=== PATIENT | male | born 1935 | race Caucasian/White ===

== ENCOUNTER 2017-08-31 21:49 | Emergency (ER) | payer MEDICARE, SELFPAY ==
[2017-08-31 21:54] VITALS: BP 146/71; PULSE 985; RESP 20; TEMP 37.5; O2SAT 97; BMI 21.7
--- NOTE | 2017-08-31 22:16 | PC.NURSE ---
pt spouse reports cough starting at 4pm and getting worse with time. reports temp 98 at home and 99 in triage.
--- NOTE | 2017-08-31 22:45 | ED.GENADULT ---
HPI - General Adult General Chief complaint: Weakness Stated complaint: NON STOP COUGHING WEAKNESS Time Seen by Provider: 08/31/17 22:08 Source: patient Mode of arrival: ambulatory Limitations: no limitations History of Present Illness HPI narrative: 81-year-old male here for evaluation of a cough. Patient states that he has had a cough for the past couple days. No fevers. Is nonproductive. States he has problems sleeping. No chest pain. Has not tried anything for it. Related Data Home Medications Medication Instructions Recorded Confirmed Ranitidine Hydrochloride 150 mg PO BID #0 09/19/12 (RANITIDINE) [place] #0 09/19/12 [lutein] 6 mg QDAY #0 09/19/12 aspirin 81 mg PO QDAY #0 09/19/12 atenolol 25 mg PO QDAY #0 09/19/12 donepezil [Aricept] 10 mg PO HS #0 09/19/12 nitroglycerin [Nitrostat] 0.4 mg SUBLINGUAL PRN #0 09/19/12 cetirizine 10 mg PO QDAYP PRN #0 03/05/17 lorazepam 0.5 mg PO TIDP PRN #0 03/05/17 omega 3-xxh-xmt-fish oil [[place]] 1 cap PO QDAY #0 03/05/17 tamsulosin [Flomax] 1 cap PO QDAY #0 05/27/17 Previous Rx's Medication Instructions Recorded azithromycin 250 mg PO DAILY 4 Days 08/31/17 prednisone 20 mg PO DAILY #5 tab 08/31/17 Allergies Allergy/AdvReac Type Severity Reaction Status Date / Time vancomycin [VANCOMYCIN] Allergy Severe FACIAL Verified 08/31/17 22:01 SWELLING Review of Systems Constitutional Reports chills, Reports difficulty sleeping, Reports fatigue and Denies night sweats Comments: Weakness Cardiovascular Denies chest pain, Denies irregular heart rhythm, Denies lightheadedness, Denies palpitations, Reports dyspnea and Denies orthopnea Respiratory Denies change in phlegm color, Reports chest congestion, Reports cough, Denies hemoptysis, Denies excessive phlegm production, Reports pain with cough, Reports dyspnea and Reports wheezing Gastrointestinal Gastrointestinal: Denies abdominal pain, Denies change in bowel habits, Denies diarrhea, Denies nausea and Denies vomiting Genitourinary Denies hematuria, Denies flank pain, Denies urinary incontinence and Denies urinary urgency Musculoskeletal Denies back pain, Denies muscle weakness, Denies numbness and Denies tingling Integumentary/Breasts Denies pruritus, Denies erythema, Denies rash and Denies wounds Neurologic Denies numbness and Denies tingling Endocrine Reports fatigue and Denies palpitations Hematologic/Lymphatic Denies easy bruising Allergic/Immunologic Reports wheezing [facility] Social History Smoking Status: Never smoker Exam Resp Effort & Inspection: cough, not labored, no respiratory distress and no retractions Auscultation: rhonchi and wheezes Cardio Rate: regular rate Rhythm: regular rhythm Heart Sounds: no click, no gallops, no murmurs and no rubs Pulses: normal peripheral pulses Skin General: no rashes or lesions noted, No jaundice and No petechiae Neuro General: alert, awake, oriented x3, gait normal and no focal motor deficits Speech: speech normal Sensory Exam: no sensory deficits noted Extrem General: full ROM, no clubbing, cyanosis or edema, no pedal edema and no calf tenderness Medical Decision Making MDM Narrative Medical decision making narrative: Patient arrived with a couple days of cough and coarse breath sounds. Chest x-ray does not show a definitive pneumonia however does have fatigue and chills and coarse breath sounds. Will treat with antibiotics for a clinical pneumonia. Patient also received a nebulizer treatment here in the emergency department which he states did improve his symptoms somewhat. No indication for admission. Patient not hypoxic. Doubt ACS. Patient was given return precautions. He expressed understanding and agreement with plan. Imaging Data Chest x-ray: My impression: No focal consolidation Normal size heart No pneumothorax Course Orders Ordered: ED Orders 08/31/17 22:46 XR chest 2V Stat Discontinued Medications Albuterol/Ipratropium (Duoneb) 3 ml INH NOW ONE Stop: 08/31/17 22:46 Last Admin: 08/31/17 22:48 Dose: 3 ml Azithromycin (Zithromax) 500 mg PO NOW ONE Stop: 08/31/17 23:58 Last Admin: 09/01/17 00:04 Dose: 500 mg Prednisone (Deltasone) 20 mg PO NOW ONE Stop: 08/31/17 23:58 Last Admin: 09/01/17 00:03 Dose: 20 mg Last Vital Signs Temp 99.5 F 08/31/17 21:54 Pulse 82 09/01/17 00:25 Resp 18 09/01/17 00:25 BP 141/82 H 09/01/17 00:25 Pulse Ox 98 09/01/17 00:25 Discharge Plan Departure Patient Disposition: Home, Self-Care Clinical Impression: Cough, Acute upper respiratory infection Discharge Date/Time: 09/01/17 00:44 Interventions: ED Discharge Assessment Last Done: 09/01/17 00:40 Instructions: Cough Activity Restrictions/Additional Instructions: Take all of your medications as instructed. Return to the emergency department for any new or worsening symptoms Prescriptions: New azithromycin 250 mg tablet 250 mg PO DAILY 4 Days RF: 0 prednisone 20 mg tablet 20 mg PO DAILY Qty: 5 RF: 0 No Action donepezil [Aricept] 10 MG tablet 10 mg PO HS Qty: 0 RF: 0 aspirin 81 MG tablet,chewable 81 mg PO QDAY Qty: 0 RF: 0 atenolol 50 MG tablet 25 mg PO QDAY Qty: 0 RF: 0 [lutein] 6 mg QDAY Qty: 0 RF: 0 nitroglycerin [Nitrostat] 0.4 MG tablet, sublingual 0.4 mg Sublingual PRN Qty: 0 RF: 0 Ranitidine Hydrochloride (RANITIDINE) 150 mg PO BID Qty: 0 RF: 0 [place] Qty: 0 RF: 0 lorazepam 0.5 MG tablet 0.5 mg PO TIDP PRNQty: 0 RF: 0 omega 3-ymn-xxn-fish oil [Omera] 1 EACH capsule 1 cap PO QDAY Qty: 0 RF: 0 cetirizine 10 MG tablet 10 mg PO QDAYP PRNQty: 0 RF: 0 tamsulosin [Flomax] 0.4 MG capsule,extended release 24hr 1 cap PO QDAY Qty: 0 RF: 0
--- NOTE | 2017-08-31 22:46 | DI.RAD.S_ITS ---
PROCEDURE: XR CHEST 2V INDICATIONS: Cough TECHNIQUE: 2 views of the chest were acquired. COMPARISON: None. FINDINGS: Surgical changes and devices: None. Lungs and pleura: No pleural effusions or pneumothorax. Lungs are clear. Mediastinum: Mediastinal contours are normal. Heart size is normal. Bones and chest wall: No suspicious bony abnormalities. Soft tissues appear unremarkable. IMPRESSION: No acute cardiopulmonary findings. Dictated by: Elana Arias M.D. on 09/01/2017 at 8:10 Approved by: Elana Arias M.D. on 09/01/2017 at 8:10
[2017-08-31] MEDS: ALBUTEROL/IPRATROPIUM 3 ML AMPUL INH (22:48)
[2017-08-31 22:49] VITALS: PULSE 92; O2SAT 93
[2017-08-31 22:52] VITALS: PULSE 88
[2017-09-01] MEDS: predniSONE 20 MG TABLET PO (00:03)
[2017-09-01] MEDS: AZITHROMYCIN 250 MG TABLET 500 MG PO (00:04)
[2017-09-01 00:25] VITALS: BP 141/82; PULSE 82; RESP 18; O2SAT 98
== END 2017-09-01 00:44 | disposition home or self-care (01) ==
PROVIDERS: Emergency Provider Emergency Medicine; Family Provider Internal Medicine; PCP Internal Medicine
DX: J06.9 Acute upper respiratory infection, unspecified (principal); R05 Cough
CPT/HCPCS: 71046; 94640; 99282; 99283

== ENCOUNTER → 2017-09-12 08:29 | Outpatient (CLI) | payer MEDICARE, SELFPAY ==
[2017-09-12 09:37] LABS: Alanine Aminotransferase 42 IU/L (21-72); Albumin 4.2 g/dL (3.5-5.0); Albumin Globulin Ratio 1.3 (1.0-2.8); Alkaline Phosphatase 75 U/L (38-126); Aspartate Aminotransferase 20 IU/L (17-59); Bilirubin Total 0.7 mg/dL (0.2-1.3); Bilirubin Unconjugated 0.6 mg/dL (0.0-1.1); Cholesterol 188 mg/dL (140-199); Globulin 3.3 g/dL (1.7-4.1); HDL Cholesterol 63 mg/dL (40-60); HEMOLYSIS < 15 (0-50); LDL Cholesterol Calculated 100 mg/dL (<100); Total Protein 7.5 g/dL (6.3-8.2); Triglycerides 126 mg/dL (35-150)
== END ==
PROVIDERS: PCP Internal Medicine; Visit Provider Internal Medicine Cardiovascular Disease
DX: I10 Essential (primary) hypertension (principal); E78.5 Hyperlipidemia, unspecified
CPT/HCPCS: 36415; 80061; 80076

== ENCOUNTER → 2019-05-28 14:47 | Outpatient (ROUT) | payer MEDICARE, SELFPAY ==
[2019-05-28 15:11] LABS: Aspartate Aminotransferase 42 IU/L (17-59); Blood Urea Nitrogen 14 mg/dL (9-20); Calcium 9.8 mg/dL (8.4-10.2); Carbon Dioxide 27 mmol/L (22-32); Chloride 101 mmol/L (98-107); Cholesterol 130 mg/dL (140-199); Estimated Glomerular Filt Rate > 60.0 mL/min (>60); Glucose 269 mg/dL (80-110); HDL Cholesterol 36 mg/dL (40-60); HEMOLYSIS < 15 (0-50); LDL Cholesterol Calculated 65 mg/dL (<100); Potassium 4.2 mmol/L (3.4-5.1); Sodium 138 mmol/L (137-145); Triglycerides 145 mg/dL (35-150)
== END ==
PROVIDERS: Family Provider Internal Medicine; PCP Internal Medicine; Visit Provider Internal Medicine
DX: E11.9 Type 2 diabetes mellitus without complications (principal); I10 Essential (primary) hypertension; E78.2 Mixed hyperlipidemia
CPT/HCPCS: 80048; 80061; 83036; 84450

== ENCOUNTER 2019-09-16 19:37 | Emergency (ER) | payer MEDICARE, SELFPAY ==
--- NOTE | 2019-09-16 19:35 | DI.CT.S_ITS ---
PROCEDURE: CT HEAD/BRAIN WO CON INDICATIONS: head injury on plavix TECHNIQUE: Noncontrast 4.5 mm thick angled axial sections acquired from the foramen magnum to the vertex, with coronal and sagittal reformats. For radiation dose reduction, the following was used: automated exposure control, adjustment of mA and/or kV according to patient size. COMPARISON: [facility], CT, HEAD WITHOUT CONTRAST, 05/26/2017, 21:40. FINDINGS: Image quality: Excellent. CSF spaces: Basal cisterns are patent. No extra-axial fluid collections. Ventricles are normal dilated but unchanged since 2018. Brain: No midline shift. No intracranial masses or hemorrhage. No area of hypodensity in a large vascular distribution to suggest acute infarction. Periventricular hypodensity consistent with chronic microvascular ischemic change. Skull and face: Calvarium and visualized facial bones are intact, without suspicious lesions. Sinuses: Visualized sinuses and mastoids are clear. IMPRESSION: No acute intracranial abnormality. No acute intracranial hemorrhage. Chronic microvascular ischemic disease. Prominent ventricles are unchanged. Dictated by: Kayden Philip M.D. on 09/16/2019 at 19:52 Approved by: Kayden Philip M.D. on 09/16/2019 at 19:55
[2019-09-16 19:37] VITALS: BP 167/82; PULSE 80; RESP 14; TEMP 36.9; O2SAT 99
[2019-09-16 19:41] VITALS: BP 167/82; PULSE 80; RESP 18; TEMP 36.9; O2SAT 98
--- NOTE | 2019-09-16 19:48 | ED.HEATRA ---
HPI - Head Injury General Chief complaint: Trauma Stated complaint: mechanical fall on Plavix, Modified Time Seen by Provider: 09/16/19 19:39 Source: EMS Mode of arrival: EMS Limitations: no limitations History of Present Illness HPI Narrative: 83M nonsmoker is wheel chair bound due to parkinson's and dementia presents by EMS due to in accidental fall with head injury. He was leaning forward in his wheelchair, trying to accommodate his who was cleaning when he fell forward into a counter. He denies any loss of consciousness and has had no nausea or vomiting. He is otherwise well and free of complaint. He denies any injury. He is activated as a modified trauma as he is on Plavix given his history of coronary artery disease. He has dementia and is a poor historian. MD Complaint: head injury Onset (ago): minute(s) Mechanism of Injury: fall Place: home Loss of Consciousness: no Location of injury: frontal Severity: mild Radiation: none Other Injuries: none Context: other anticoagulant use Associated symptoms: denies other symptoms Related Data Home Medications Medication Instructions Recorded Confirmed Ranitidine Hydrochloride 150 mg PO BID #0 09/19/12 (RANITIDINE) [place] #0 09/19/12 [lutein] 6 mg QDAY #0 09/19/12 aspirin 81 mg PO QDAY #0 09/19/12 atenolol 25 mg PO QDAY #0 09/19/12 donepezil [Aricept] 10 mg PO HS #0 09/19/12 nitroglycerin [Nitrostat] 0.4 mg SUBLINGUAL PRN #0 09/19/12 cetirizine 10 mg PO QDAYP PRN #0 03/05/17 lorazepam 0.5 mg PO TIDP PRN #0 03/05/17 omega 5-rhd-dsv-fish oil [Omera] 1 cap PO QDAY #0 03/05/17 tamsulosin [Flomax] 1 cap PO QDAY #0 05/27/17 Previous Rx's Medication Instructions Recorded prednisone 20 mg PO DAILY #5 tab 08/31/17 Allergies Allergy/AdvReac Type Severity Reaction Status Date / Time vancomycin [VANCOMYCIN] Allergy Severe FACIAL Verified 09/16/19 19:54 SWELLING Review of Systems Review of Systems Narrative: poor historian, History is largely from EMS Constitutional Constitutional: Denies chills, Denies fatigue, Denies fever(s), Denies frequent falls, Denies lethargy and Denies weakness Eyes Eyes: Denies change in vision, Denies eye discharge, Denies irritation and Denies loss of vision ENT Ears, Nose, Mouth, and Throat: Denies change in voice, Denies dizziness, Denies neck pain, Denies sore throat and Denies throat swelling Cardiovascular Cardiovascular: Denies chest pain, Denies irregular heart rhythm, Denies lightheadedness, Denies palpitations, Denies dyspnea, Denies dyspnea on exertion and Denies orthopnea Respiratory Respiratory: Denies cough, Denies dyspnea, Denies dyspnea on exertion and Denies wheezing Gastrointestinal Gastrointestinal: Denies abdominal pain, Denies change in bowel habits, Denies diarrhea, Denies nausea and Denies vomiting Genitourinary Genitourinary: Denies hematuria, Denies flank pain, Denies urinary incontinence and Denies urinary urgency Musculoskeletal Musculoskeletal: Denies back pain, Denies muscle weakness, Denies neck pain, Denies numbness and Denies tingling Integumentary/Breasts Skin/Breast: Denies pruritus, Denies erythema, Denies rash and Reports wounds Neurologic Neurologic: Denies behavioral changes, Denies confusion, Denies dizziness, Denies frequent falls, Denies loss of vision, Denies numbness, Denies tingling and Denies weakness Psychiatric Psychiatric: Denies anxiety, Denies behavioral changes, Denies confusion, Denies depression, Denies homicidal ideation and Denies suicidal ideation Endocrine Endocrine: Denies fatigue, Denies flushing and Denies palpitations Hematologic/Lymphatic Hematologic/Lymphatic: Denies easy bruising Allergic/Immunologic Allergic/Immunologic: Denies urticaria, Denies throat swelling and Denies wheezing Patient History Social History Smoking Status: Never smoker Smoking Status: Never smoker Substance Use Type: does not use Exam Narrative Exam Narrative: GENERAL: [83] year old patient appears stated age. Well-nourished, well-developed patient, in mild distress. Confused, baseline per medics/family GCS 14 HEAD: 3cm laceration over left eye. Slow trickle bleeding. EYES: Pupils equal round and reactive. Extraocular motions intact. No scleral icterus. No injection or drainage. ENT: Nose without bleeding, purulent drainage. Throat without erythema, tonsillar hypertrophy or exudate. Airway patent. NECK: Trachea midline. Non tender CARDIOVASCULAR: Regular rate and rhythm without murmurs, gallops, or rubs. RESPIRATORY: Clear to auscultation. Breath sounds equal bilaterally. No wheezes, rales, or rhonchi. GASTROINTESTINAL: Abdomen soft, non-tender, nondistended. EXTREMITIES: No edema or joint tenderness. BACK: Nontender without deformity or crepitance. No flank tenderness. NEURO: Awake, confused SKIN: No rash or erythema of visible areas Initial Vital Signs Initial Vital Signs: Vital Signs Temperature 98.4 F 09/16/19 19:37 Pulse Rate 80 09/16/19 19:37 Respiratory Rate 14 09/16/19 19:37 Blood Pressure 167/82 H 09/16/19 19:37 Pulse Oximetry 99 09/16/19 19:37 Procedures Laceration Repair Laceration 1: Site: face Side (If applicable): left Size (cm): 3 Description: irregular Depth: involves muscle layer Local Anesthetic: lidocaine 1% and with epi Amount of anesthesia used (mL): 4 Pre-repair: wound explored Skin layer closed with: nylon Size (cm): 5-0 Number of sutures: 8 Technique: simple, interrupted Subcutaneous layer closed with: vicryl Size: 5-0 Number of sutures: 1 Technique: simple, interrupted Course Orders Ordered: ED Orders 09/16/19 19:35 CT head/brain wo con Stat 09/16/19 19:59 Complete Blood Count AUTO DIFF Stat Prothrombin Time INR Stat Discontinued Medications Bacitracin (Bacitracin) 1 applic TOP NOW ONE Stop: 09/16/19 20:47 Last Admin: 09/16/19 20:57 Dose: 1 applic Documented by: TALITA Lidocaine/Epinephrine (Xylocaine 1% W/Epi) 1 ml SUBCUT NOW ONE Stop: 09/16/19 19:36 Last Admin: 09/16/19 19:57 Dose: 1 ml Documented by: TALITA Vital Signs Vital signs: Vital Signs - 8 hr 09/16/19 19:37 09/16/19 19:41 09/16/19 19:55 Temperature 98.4 F 98.4 F Pulse Rate 80 80 80 Respiratory Rate 14 18 16 Blood Pressure 167/82 H 167/82 H Blood Pressure [Left Arm] 155/70 H Pulse Oximetry 99 98 99 09/16/19 20:50 Temperature Pulse Rate 77 Respiratory Rate 16 Blood Pressure Blood Pressure [Left Arm] 127/70 Pulse Oximetry 99 MDM - Head Injury Lab Data Result diagrams: 09/16/19 19:59 Labs: Lab Results 09/16/19 09/16/19 Range/Units 19:59 19:59 WBC 5.5 (4.5-11.0) X10^3/uL RBC 4.12 L (4.5-5.9) X10^6/uL Hgb 13.6 (13.5-17.5) g/dL Hct 38.1 L (41-53) % MCV 92.5 (80-100) fL MCH 32.9 (26-34) PG MCHC 35.6 (30-36) % RDW 14.1 (11.6-14.8) % Plt Count 180 (150-400) X10^3/uL Neut % (Auto) 66.4 (50-75) % Lymph % (Auto) 21.6 L (25-40) % [place] % (Auto) 3.8 (3-14) % Eos % (Auto) 4.2 H (2-4) % Baso % (Auto) 4.0 H (0-2) % Neut # (Auto) 3700 (5164-8679) /uL Lymph # (Auto) 1200 (9455-1792) /uL [place] # (Auto) 200 (0-900) /uL Eos # (Auto) 200 (0-450) /uL Baso # (Auto) 200 H (0-100) /uL PT 12.4 (10.1-12.7) SECONDS INR 1.1 (0.9-1.3) Imaging Data CT scan - head: Radiologist's Impression: [address] [id number] [address] Scan Report Signed Patient: Cosme Barroso [facility]#: [id number] : 5Acct:[id number] Age/Sex: 83 / MDate of Service: 09/16/19 Loc: ED Accession Number: [id number] Procedure: CT head/brain wo con Ordering Provider: Titus Landis D.O. PROCEDURE: CT HEAD/BRAIN WO CON INDICATIONS: head injury on plavix TECHNIQUE: Noncontrast 4.5 mm thick angled axial sections acquired from the foramen magnum to the vertex, with coronal and sagittal reformats. For radiation dose reduction, the following was used: automated exposure control, adjustment of mA and/or kV according to patient size. COMPARISON: [facility], CT, HEAD WITHOUT CONTRAST, 05/26/2017, 21:40. FINDINGS: Image quality: Excellent. CSF spaces: Basal cisterns are patent. No extra-axial fluid collections. Ventricles are normal dilated but unchanged since 2018. Brain: No midline shift. No intracranial masses or hemorrhage. No area of hypodensity in a large vascular distribution to suggest acute infarction. Periventricular hypodensity consistent with chronic microvascular ischemic change. Skull and face: Calvarium and visualized facial bones are intact, without suspicious lesions. Sinuses: Visualized sinuses and mastoids are clear. IMPRESSION: No acute intracranial abnormality. No acute intracranial hemorrhage. Chronic microvascular ischemic disease. Prominent ventricles are unchanged. Dictated by: Kayden Philip M.D. on 09/16/2019 at 19:52 Approved by: Kayden Philip M.D. on 09/16/2019 at 19:55 Discharge Plan Departure Patient Disposition: Home Clinical Impression: Laceration of head Qualifiers: Encounter type: initial encounter Location of open wound of head: unspecified part of head Foreign body presence: without foreign body Qualified Code(s): S01.91XA - Laceration without foreign body of unspecified part of head, initial encounter Discharge Date/Time: 09/16/19 21:15 Instructions: DI for Laceration Repair Activity Restrictions/Additional Instructions: Please keep the wound clean and dry to the best of your ability. Please monitor for signs of infection such as redness to the skin or increasing pain. Have the sutures removed by your doctor in about 7 days. If you are unable to get into your doctor, we would be happy to remove the sutures in that same timeframe. If you have trouble finding a way to get the sutures out you could also call the [facility] Resource line listed below Prescriptions: No Action donepezil [Aricept] 10 MG tablet 10 mg PO HS Qty: 0 RF: 0 aspirin 81 MG tablet,chewable 81 mg PO QDAY Qty: 0 RF: 0 atenolol 50 MG tablet 25 mg PO QDAY Qty: 0 RF: 0 [lutein] 6 mg QDAY Qty: 0 RF: 0 nitroglycerin [Nitrostat] 0.4 MG tablet, sublingual 0.4 mg Sublingual PRN Qty: 0 RF: 0 Ranitidine Hydrochloride (RANITIDINE) 150 mg PO BID Qty: 0 RF: 0 [place] Qty: 0 RF: 0 lorazepam 0.5 MG tablet 0.5 mg PO TIDP PRNQty: 0 RF: 0 omega 2-ujg-jjh-fish oil [Omera] 1 EACH capsule 1 cap PO QDAY Qty: 0 RF: 0 cetirizine 10 MG tablet 10 mg PO QDAYP PRNQty: 0 RF: 0 tamsulosin [Flomax] 0.4 MG capsule,extended release 24hr 1 cap PO QDAY Qty: 0 RF: 0 prednisone 20 mg tablet 20 mg PO DAILY Qty: 5 RF: 0 Referrals: [facility] [Outside] Christo Woodson MD [Primary Care Provider] -
[2019-09-16 19:55] VITALS: BP 155/70; PULSE 80; RESP 16; O2SAT 99
[2019-09-16] MEDS: LIDOCAINE 1% W/EPI 1 ML SUBCUT (19:57)
[2019-09-16 20:13] LABS: Add Manual Diff / Slide Review NO; Basophils Absolute Auto 200 /uL (0-100); Eosinophils Absolute Auto 200 /uL (0-450); Eosinophils Percent Auto 4.2 % (2-4); Hematocrit 38.1 % (41-53); Hemoglobin 13.6 g/dL (13.5-17.5); Lymphocytes Absolute Auto 1200 /uL (1100-4500); Lymphocytes Percent Auto 21.6 % (25-40); Mean Corpuscular HGB Conc 35.6 % (30-36); Mean Corpuscular Hemoglobin 32.9 PG (26-34); Mean Corpuscular Volume 92.5 fL (80-100); Monocytes Absolute Auto 200 /uL (0-900); Monocytes Percent Auto 3.8 % (3-14); Neutrophils Absolute Auto 3700 /uL (1500-7000); Neutrophils Percent Auto 66.4 % (50-75); Platelet Count 180 X10^3/uL (150-400); Red Blood Cell Count 4.12 X10^6/uL (4.5-5.9); Red Cell Distribution Width 14.1 % (11.6-14.8); White Blood Cell Count 5.5 X10^3/uL (4.5-11.0)
[2019-09-16 20:16] LABS: INR 1.1 (0.9-1.3); Prothrombin Time 12.4 SECONDS (10.1-12.7)
[2019-09-16 20:50] VITALS: BP 127/70; PULSE 77; RESP 16; O2SAT 99
--- NOTE | 2019-09-16 20:51 | PC.NURSE ---
Pt requiring BLS transport r/t inability to sit in wheel chair w/o falling out, decreased mobility.
[2019-09-16] MEDS: BACITRACIN OINT 0.9 GM PCKT 1 APPLIC TOP (20:57)
--- NOTE | 2019-09-16 21:15 | PC.NURSE ---
Report to NWA @ bedside.
== END 2019-09-16 21:15 | disposition home or self-care (01) ==
PROVIDERS: Emergency Provider Emergency Medicine; Family Provider Internal Medicine; PCP Internal Medicine
DX: S01.91XA Laceration without foreign body of unspecified part of head, initial encounter (principal); W05.0XXA Fall from non-moving wheelchair, initial encounter; G20 Parkinson's disease; F02.80 Dementia in other diseases classified elsewhere, unspecified severity, without behavioral disturbance, psychotic disturbance, mood disturbance, and anxiety; I25.10 Atherosclerotic heart disease of native coronary artery without angina pectoris; Z79.01 Long term (current) use of anticoagulants
CPT/HCPCS: 12013; 36415; 70450; 85025; 85610; 99284

== ENCOUNTER 2019-09-23 16:28 | Inpatient (IN) | payer MEDICARE, SELFPAY ==
[2019-09-23 16:40] VITALS: BP 169/75; PULSE 72; RESP 18; TEMP 36.6; O2SAT 96; BMI 22.0
--- NOTE | 2019-09-23 17:05 | ED.WEAKNESS ---
HPI - Weakness <Jeri TracyVIJAY - Last Filed: 09/23/19 21:12> General Chief complaint: Weakness Stated complaint: Weakness Time Seen by Provider: 09/23/19 16:54 Source: patient Mode of arrival: Ambulatory Limitations: no limitations History of Present Illness HPI Narrative: 83-year-old male with a history of Alzheimer's, Parkinson's, GERD, and MD, presents emergency department with his for increasing weakness today. states patient usually is able to use his walker to move around the house and get into and out of his hospital bed at home. However, noted this morning he was having difficulty standing and walking, she let him rest in bed today. This afternoon he continued to have difficulty standing due to increased weakness. Patient denies any symptoms such as cough, fevers, vomiting, chest pain, abdominal pain, dizziness, new falls, or any other concerns. Patient was seen on 09/16/2019 for a laceration repair to his head for a fall and negative head CT. No vomiting or change in behavior since this instant until today. Patient continued to deny any new fall since this incident. Related Data Home Medications Medication Instructions Recorded Confirmed aspirin 81 mg PO QDAY #0 09/19/12 09/23/19 donepezil [Aricept] 10 mg PO HS #0 09/19/12 09/23/19 nitroglycerin [Nitrostat] 0.4 mg SUBLINGUAL PRN #0 09/19/12 09/23/19 cetirizine 10 mg PO QDAYP PRN #0 03/05/17 09/23/19 atorvastatin 20 mg PO BEDTIME 09/23/19 09/23/19 carbidopa-levodopa 1 tab PO TID 09/23/19 09/23/19 clopidogrel [Plavix] 75 mg PO DAILY 09/23/19 09/23/19 metformin 500 mg PO BID 09/23/19 09/23/19 metoprolol succinate 25 mg PO BID 09/23/19 09/23/19 pantoprazole 40 mg PO DAILY 09/23/19 09/23/19 quetiapine 50 mg PO BEDTIME 09/23/19 09/23/19 tamsulosin 0.4 mg PO BEDTIME 09/23/19 09/23/19 Allergies Allergy/AdvReac Type Severity Reaction Status Date / Time vancomycin [VANCOMYCIN] Allergy Severe FACIAL Verified 09/23/19 16:40 SWELLING Review of Systems <VIJAY Burden - Last Filed: 09/23/19 21:12> Review of Systems Narrative: REVIEW OF SYSTEMS: GENERAL: Denies fever or chills. Reports increased weakness, see HPI. HENT: Previous head trauma week ago, see HPI. EYES: Denies vision changes. CARDIOVASCULAR: No chest pain or syncope. RESPIRATORY: No shortness of breath or cough. GASTROINTESTINAL: No nausea, vomiting, diarrhea, or constipation. GENITOURINARY: No dysuria. MUSCULOSKELETAL: Reports increasing weakness and difficulty standing. INTEGUMENTARY: No rash, lesions, or pruritus. NEURO: No numbness, tingling, memory loss, or confusion. PSYCH: Increased lethargy. 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) Falls frequently (Acute) Hypertension (Acute) Parkinson disease (Acute) Surgical History (Updated 09/23/19 @ 21:32 by Gagandeep Sánchez MD) History of back surgery (Acute) Social History Smoking Status: Never smoker Smoking Status: Never smoker Substance Use Type: does not use Exam <VIJAY Burden - Last Filed: 09/23/19 21:12> Initial Vital Signs Initial Vital Signs: Vital Signs Temperature 97.9 F 09/23/19 16:40 Pulse Rate 72 09/23/19 16:40 Respiratory Rate 18 09/23/19 16:40 Blood Pressure 169/75 H 09/23/19 16:40 Pulse Oximetry 96 09/23/19 16:40 PHYSICAL EXAMINATION: GENERAL: Well groomed, alert, and cooperative. Answers yes or no questions does not elaborate. HENT: Ecchymosis noted to left forehead, green bruising noted around left eye. Laceration above left eyebrow with sutures intact, skin is healing and approximated after sutures were removed with a small scab. Ear canals patent. Oral mucosa is pink and moist. EYES: PERRLA, EOMIs, conjunctiva pink, sclera white, no periorbital swelling. CHEST: Normal to inspection and without deformities. CARDIOVASCULAR: S1 and S2 sounds normal. Regular rate and rhythm, no murmurs, clicks, or bruits. No pedal edema. RESPIRATORY: Normal respiratory rate, trachea midline, airway patent. No stridor, nasal flaring or accessory muscle use. Lungs are clear in all joshi without wheeze, rhonchi, or crackles. GASTROINTESTINAL: Bowel sounds normoactive. Abdomen is soft and non-tender. No organomegaly. MUSCULOSKELETAL: Lower extremity weakness, patient is unable to hold right or left leg up off the bed. Slight increased weakness noted to right side of leg. Equal sales representative womens health strength bilaterally, equal forearm and deltoid strength. EXTREMITIES: CMS intact. Moves all extremities. SKIN: Warm, dry, soft, appropriate color for ethnicity. No lesions, rashes, or wounds. NEURO: Alert and oriented to person and situation. Ataxia noted, baseline ataxia due to Parkinson's. PSYCH: Flat affect, cooperative. <Thu Crowley MD - Last Filed: 09/23/19 22:59> Initial Vital Signs Initial Vital Signs: Vital Signs Temperature 97.9 F 09/23/19 16:40 Pulse Rate 72 09/23/19 16:40 Respiratory Rate 18 09/23/19 16:40 Blood Pressure 169/75 H 09/23/19 16:40 Pulse Oximetry 96 09/23/19 16:40 Scores <VIJAY Burden - Last Filed: 09/23/19 21:12> GCS [place] coma scale eye opening: Spontaneous [place] coma scale verbal response: Orientated [place] coma scale motor response: Obey commands [place] coma scale total score: 15 Course <VIJAY Burden - Last Filed: 09/23/19 21:12> Course Course Narrative: Patient taking small sips of water. Patient unable to perform full NIH score due difficulty with [place]. Orders Ordered: ED Orders 09/23/19 17:04 Partial Thromboplastin Time Stat Prothrombin Time INR Stat 09/23/19 17:05 XR chest 1V Stat 09/23/19 17:37 Complete Blood Count AUTO DIFF Stat Comprehensive Metabolic Panel Stat Lactate (Lactic Acid) Stat Troponin & CK Cardiac Panel Stat 09/23/19 17:44 Blood Culture Stat 09/23/19 18:59 CT head/brain wo con Stat 09/23/19 19:56 Urinalysis and Microscopic Stat Atorvastatin Calcium (Lipitor) 20 mg PO BEDTIME BIPIN Carbidopa/Levodopa (Sinemet 25-100 Tab) 1 each PO TID BIPIN Donepezil HCl (Aricept) 10 mg PO BEDTIME BIPIN Famotidine (Pepcid Ac) 20 mg PO BID BIPIN Sodium Chloride (Normal Saline 0.9%) 1,000 mls @ 150 mls/hr IV CONT BIPIN Last Infusion: 09/23/19 20:39 Dose: 500 mls/hr Documented by: Infusion: 09/23/19 18:48 Dose: 500 mls/hr Documented by: Admin: 09/23/19 17:29 Dose: 150 mls/hr Documented by: MEISENLuis Sodium Chloride (Normal Saline 0.9%) 1,000 mls @ 80 mls/hr IV CONT BIPIN Stop: 09/24/19 18:00 Metformin HCl (Glucophage) 500 mg PO BID BIPIN Metoprolol Succinate (Toprol Xl) 25 mg PO BID BIPIN Naloxone HCl (Narcan) 0.2 mg IV Q2MIN PRN PRN Reason: Opiate Reversal Nitroglycerin (Nitrostat) 0.4 mg SL PRN BIPIN Quetiapine Fumarate (Seroquel) 50 mg PO BEDTIME BIPIN Tamsulosin HCl (Flomax) 0.4 mg PO BEDTIME BIPIN Discontinued Medications Atenolol (Tenormin) 25 mg PO BEDTIME BIPIN Tamsulosin HCl (Flomax) 0.4 mg PO BEDTIME BIPIN Consultations Consultation #1: Patient staffed with Dr. crowley discussed symptoms, tests, test results. Patient was admitted to Dr. Sánchez under observation. Vital Signs Vital signs: Vital Signs - 8 hr 09/23/19 16:40 09/23/19 18:10 09/23/19 18:30 Temperature 97.9 F Pulse Rate 72 75 71 Respiratory Rate 18 21 19 Blood Pressure 169/75 H Blood Pressure [Right Arm] 186/81 H 158/77 H Pulse Oximetry 96 97 96 09/23/19 19:31 09/23/19 20:00 Temperature Pulse Rate 69 73 Respiratory Rate 24 19 Blood Pressure Blood Pressure [Right Arm] 177/77 H 164/72 H Pulse Oximetry 97 97 <Thu Crowley MD - Last Filed: 09/23/19 22:59> Orders Ordered: ED Orders 09/23/19 17:04 Partial Thromboplastin Time Stat Prothrombin Time INR Stat 09/23/19 17:05 XR chest 1V Stat 09/23/19 17:37 Complete Blood Count AUTO DIFF Stat Comprehensive Metabolic Panel Stat Lactate (Lactic Acid) Stat Troponin & CK Cardiac Panel Stat 09/23/19 17:44 Blood Culture Stat 09/23/19 18:59 CT head/brain wo con Stat 09/23/19 19:56 Urinalysis and Microscopic Stat Atorvastatin Calcium (Lipitor) 20 mg PO BEDTIME BIPIN Carbidopa/Levodopa (Sinemet 25-100 Tab) 1 each PO TID BIPIN Donepezil HCl (Aricept) 10 mg PO BEDTIME BIPIN Famotidine (Pepcid Ac) 20 mg PO BID BIPIN Sodium Chloride (Normal Saline 0.9%) 1,000 mls @ 150 mls/hr IV CONT BIPIN Last Infusion: 09/23/19 20:39 Dose: 500 mls/hr Documented by: Infusion: 09/23/19 18:48 Dose: 500 mls/hr Documented by: Admin: 09/23/19 17:29 Dose: 150 mls/hr Documented by: MEISENB Sodium Chloride (Normal Saline 0.9%) 1,000 mls @ 80 mls/hr IV CONT BIPIN Stop: 09/24/19 18:00 Metformin HCl (Glucophage) 500 mg PO BID BIPIN Metoprolol Succinate (Toprol Xl) 25 mg PO BID BIPIN Naloxone HCl (Narcan) 0.2 mg IV Q2MIN PRN PRN Reason: Opiate Reversal Nitroglycerin (Nitrostat) 0.4 mg SL PRN BIPIN Quetiapine Fumarate (Seroquel) 50 mg PO BEDTIME BIPIN Tamsulosin HCl (Flomax) 0.4 mg PO BEDTIME BIPIN Discontinued Medications Atenolol (Tenormin) 25 mg PO BEDTIME BIPIN Tamsulosin HCl (Flomax) 0.4 mg PO BEDTIME BIPIN Vital Signs Vital signs: Vital Signs - 8 hr 09/23/19 16:40 09/23/19 18:10 09/23/19 18:30 Temperature 97.9 F Pulse Rate 72 75 71 Respiratory Rate 18 21 19 Blood Pressure 169/75 H Blood Pressure [Right Arm] 186/81 H 158/77 H Pulse Oximetry 96 97 96 09/23/19 19:31 09/23/19 20:00 Temperature Pulse Rate 69 73 Respiratory Rate 24 19 Blood Pressure Blood Pressure [Right Arm] 177/77 H 164/72 H Pulse Oximetry 97 97 MDM - Weakness <VIJAY Burden - Last Filed: 09/23/19 21:12> Medical Records Attestation: I reviewed the patient's medical records. Lab Data Attestation: I reviewed the patient's lab results. Result diagrams: 09/23/19 17:37 09/23/19 17:37 Labs: Lab Results 09/23/19 09/23/19 09/23/19 Range/Units 17:04 17:37 17:37 WBC 5.4 (4.5-11.0) X10^3/uL RBC 3.96 L (4.5-5.9) X10^6/uL Hgb 13.0 L (13.5-17.5) g/dL Hct 36.2 L (41-53) % MCV 91.4 (80-100) fL MCH 32.9 (26-34) PG MCHC 36.0 (30-36) % RDW 14.1 (11.6-14.8) % Plt Count 178 (150-400) X10^3/uL Neut % (Auto) 60.1 (50-75) % Lymph % (Auto) 24.3 L (25-40) % [place] % (Auto) 7.3 (3-14) % Eos % (Auto) 7.6 H (2-4) % Baso % (Auto) 0.7 (0-2) % Neut # (Auto) 3200 (1252-2548) /uL Lymph # (Auto) 1300 (2678-3971) /uL [place] # (Auto) 400 (0-900) /uL Eos # (Auto) 400 (0-450) /uL Baso # (Auto) 0 (0-100) /uL PT 13.0 H (10.1-12.7) SECONDS INR 1.1 (0.9-1.3) APTT 32 (26.4-36.2) SECONDS Sodium (137-145) mmol/L Potassium (3.4-5.1) mmol/L Chloride (98-107) mmol/L Carbon Dioxide (22-32) mmol/L BUN (9-20) mg/dL Creatinine (0.66-1.25) mg/dL Estimated GFR (>60) mL/min BUN/Creatinine Ratio (6-22) Glucose (80-110) mg/dL Lactate (0.7-2.1) mmol/L Calcium (8.4-10.2) mg/dL Total Bilirubin (0.2-1.3) mg/dL AST (17-59) IU/L ALT (<50) IU/L Alkaline Phosphatase (38-126) U/L Total Creatine Kinase 46 L (55-170) U/L CK-MB (CK-2) TNP CK-MB (CK-2) Rel Index TNP Troponin I 0.018 (0.01-0.034) ng/mL Total Protein (6.3-8.2) g/dL Albumin (3.5-5.0) g/dL Globulin (1.7-4.1) g/dL Albumin/Globulin Ratio (1.0-2.8) Urine Color Urine Appearance Urine pH (4.5-8.0) Ur Specific [place] (1.000-1.035) Urine Protein (Negative) Urine Glucose (UA) (Negative) g/dL Urine Ketones (NEGATIVE) Urine Occult Blood (Negative) Urine Nitrate (Negative) Urine Bilirubin (NEGATIVE) Urine Urobilinogen (0.2) E.U./dL Ur Leukocyte Esterase (NEGATIVE) Urine RBC (0-5/HPF) Urine WBC (0-5/HPF) Urine Bacteria (None) Ur Culture Indicated? 09/23/19 09/23/19 09/23/19 Range/Units 17:37 17:37 19:56 WBC (4.5-11.0) X10^3/uL RBC (4.5-5.9) X10^6/uL Hgb (13.5-17.5) g/dL Hct (41-53) % MCV (80-100) fL MCH (26-34) PG MCHC (30-36) % RDW (11.6-14.8) % Plt Count (150-400) X10^3/uL Neut % (Auto) (50-75) % Lymph % (Auto) (25-40) % [place] % (Auto) (3-14) % Eos % (Auto) (2-4) % Baso % (Auto) (0-2) % Neut # (Auto) (4348-2958) /uL Lymph # (Auto) (2259-9917) /uL [place] # (Auto) (0-900) /uL Eos # (Auto) (0-450) /uL Baso # (Auto) (0-100) /uL PT (10.1-12.7) SECONDS INR (0.9-1.3) APTT (26.4-36.2) SECONDS Sodium 139 (137-145) mmol/L Potassium 4.0 (3.4-5.1) mmol/L Chloride 101 (98-107) mmol/L Carbon Dioxide 32 (22-32) mmol/L BUN 13 (9-20) mg/dL Creatinine 0.94 (0.66-1.25) mg/dL Estimated GFR > 60.0 (>60) mL/min BUN/Creatinine Ratio 13.8 (6-22) Glucose 154 H (80-110) mg/dL Lactate 1.9 (0.7-2.1) mmol/L Calcium 9.3 (8.4-10.2) mg/dL Total Bilirubin 1.4 H (0.2-1.3) mg/dL AST 33 (17-59) IU/L ALT 30 (<50) IU/L Alkaline Phosphatase 54 (38-126) U/L Total Creatine Kinase (55-170) U/L CK-MB (CK-2) CK-MB (CK-2) Rel Index Troponin I (0.01-0.034) ng/mL Total Protein 7.4 (6.3-8.2) g/dL Albumin 4.3 (3.5-5.0) g/dL Globulin 3.1 (1.7-4.1) g/dL Albumin/Globulin Ratio 1.4 (1.0-2.8) Urine Color Yellow Urine Appearance Clear Urine pH 6.5 (4.5-8.0) Ur Specific [place] 1.015 (1.000-1.035) Urine Protein Negative (Negative) Urine Glucose (UA) Negative (Negative) g/dL Urine Ketones Negative (NEGATIVE) Urine Occult Blood Negative (Negative) Urine Nitrate Negative (Negative) Urine Bilirubin Negative (NEGATIVE) Urine Urobilinogen 1.0 (0.2) E.U./dL Ur Leukocyte Esterase Negative (NEGATIVE) Urine RBC None seen (0-5/HPF) Urine WBC 0-1/hpf (0-5/HPF) Urine Bacteria None seen (None) Ur Culture Indicated? Cult not indicated Imaging Data Chest x-ray: Radiologist Impression: [address] [address] XRay Report Signed Patient: Cosme Barroso [facility]#: [id number] : 5Acct:[id number] Age/Sex: 83 / MDate of Service: 09/23/19 Loc: ED Accession Number: [id number] Procedure: XR chest 1V Ordering Provider: Jeri Tracy PROCEDURE: XR CHEST 1V INDICATIONS: weakness TECHNIQUE: One view of the chest was acquired. COMPARISON: [facility], CR, XR CHEST 2V, 08/31/2017, 22:46. FINDINGS: Surgical changes and devices: Cholecystectomy clips. Lungs and pleura: Lungs are clear. No pleural effusions or pneumothorax. Mediastinum: Mediastinal contours appear normal. Heart is enlarged. Bones and chest wall: Chronic left sixth rib fracture. No suspicious bony lesions. Overlying soft tissues appear unremarkable. IMPRESSION: No acute cardiopulmonary disease process. Dictated by: Kayli Valadez MD, PhD on 09/23/2019 at 17:56 Approved by: Kayli Valadez MD, PhD on 09/23/2019 at 17:57 CT scan - head: My Impression: [address] [address] [address] Scan Report Signed Patient: Cosme Barroso [facility]#: [id number] : 5Acct:[id number] Age/Sex: 83 / MDate of Service: 09/23/19 Loc: ED Accession Number: [id number] Procedure: CT head/brain wo con Ordering Provider: Jeri Tracy PROCEDURE: CT HEAD/BRAIN WO CON INDICATIONS: Head injury TECHNIQUE: Noncontrast 4.5 mm thick angled axial sections acquired from the foramen magnum to the vertex, with coronal and sagittal reformats. For radiation dose reduction, the following was used: automated exposure control, adjustment of mA and/or kV according to patient size. COMPARISON: [facility], CT, CT HEAD/BRAIN WO CON, 09/16/2019, 19:38. FINDINGS: Image quality: Excellent. CSF spaces: Basal cisterns are patent. No extra-axial fluid collections. Ventricular megaly stable compared to 09/16/19. Brain: Large amount of acute hemorrhage noted in the occipital and temporal horns of the right lateral ventricle. Small amount of acute hemorrhage noted in the dependent portion of the occipital horn of the left lateral ventricle. There is cerebral volume loss for age, with resultant ventricular and sulcal prominence. There are periventricular and deep white matter chronic small vessel ischemic changes. There is intracranial internal carotid artery atherosclerosis. Skull and face: Calvarium and visualized facial bones appear intact, without suspicious lesions. Sinuses: Visualized sinuses and mastoids are clear. IMPRESSION: 1. Acute interventricular hemorrhage with large amount of hemorrhage in the right lateral ventricle and small amount of hemorrhage left lateral ventricle. 2. Findings discussed with Dr. Thu Crowley on 09/23/2019 at 1917 hrs. Dictated by: Kayli Valadez MD, PhD on 09/23/2019 at 19:16 Approved by: Kayli Valadez MD, PhD on 09/23/2019 at 19:21 ECG Data Interpretation: 1637: Sinus rhythm, rate 70, HI interval 168, QTC 374. Possible less than [address] depression in V4 and V5 which is consistent with EKG in 2018. No ST elevation, T-wave inversion noted to be T-wave in V3 which is also consistent from past EKG in 2018. No ectopy. EKG also viewed by Dr. Ferguson. MDM Narrative Medical decision making narrative: 83-year-old male with a history of Parkinson's dementia, presenting to the emergency department for increasing weakness. History of fall a week ago with negative head CT. I suspect patient's symptoms are most likely caused by the acute inter ventricle cranial bleed seen on today's CT. I had an extensive conversation with the patient about findings on CT. I discussed with patient and family about contacting Neurosurgery which may remain not involved brain surgery. states she was told that doctors do not suggest surgery as each surgery and sedation worsens his dementia. She explained that patient is currently a DNR. We discussed going home at this time versus admission, patient is nervous that he may get worse if she brought him home does also nervous about COVID-19, patient's opted for admission at this time. Less likely weakness due to anemia, while H&H is slightly lower than last week, drop is not significant. Less likely ACS due to Lack of acute changes on EKG, negative troponin. Patient did have some possible ST depressions noted in V4 and V5. However, these were consistent with past EKG in 2018 as well. No reports of chest pain or shortness of breath. Less likely infection such as pneumonia, sepsis, or cellulitis due to lack of findings on examination, negative chest x-ray, lung sounds without abnormalities. However, urine has not been collected prior to discharge. I suggest urine testing to rule out other causes of generalized weakness. Patient was admitted for further workup and observation. <Thu Crowley MD - Last Filed: 09/23/19 22:59> Lab Data Labs: Lab Results 09/23/19 09/23/19 09/23/19 Range/Units 17:04 17:37 17:37 WBC 5.4 (4.5-11.0) X10^3/uL RBC 3.96 L (4.5-5.9) X10^6/uL Hgb 13.0 L (13.5-17.5) g/dL Hct 36.2 L (41-53) % MCV 91.4 (80-100) fL MCH 32.9 (26-34) PG MCHC 36.0 (30-36) % RDW 14.1 (11.6-14.8) % Plt Count 178 (150-400) X10^3/uL Neut % (Auto) 60.1 (50-75) % Lymph % (Auto) 24.3 L (25-40) % [place] % (Auto) 7.3 (3-14) % Eos % (Auto) 7.6 H (2-4) % Baso % (Auto) 0.7 (0-2) % Neut # (Auto) 3200 (3074-1148) /uL Lymph # (Auto) 1300 (2402-9198) /uL [place] # (Auto) 400 (0-900) /uL Eos # (Auto) 400 (0-450) /uL Baso # (Auto) 0 (0-100) /uL PT 13.0 H (10.1-12.7) SECONDS INR 1.1 (0.9-1.3) APTT 32 (26.4-36.2) SECONDS Sodium (137-145) mmol/L Potassium (3.4-5.1) mmol/L Chloride (98-107) mmol/L Carbon Dioxide (22-32) mmol/L BUN (9-20) mg/dL Creatinine (0.66-1.25) mg/dL Estimated GFR (>60) mL/min BUN/Creatinine Ratio (6-22) Glucose (80-110) mg/dL Lactate (0.7-2.1) mmol/L Calcium (8.4-10.2) mg/dL Total Bilirubin (0.2-1.3) mg/dL AST (17-59) IU/L ALT (<50) IU/L Alkaline Phosphatase (38-126) U/L Total Creatine Kinase 46 L (55-170) U/L CK-MB (CK-2) TNP CK-MB (CK-2) Rel Index TNP Troponin I 0.018 (0.01-0.034) ng/mL Total Protein (6.3-8.2) g/dL Albumin (3.5-5.0) g/dL Globulin (1.7-4.1) g/dL Albumin/Globulin Ratio (1.0-2.8) Urine Color Urine Appearance Urine pH (4.5-8.0) Ur Specific [place] (1.000-1.035) Urine Protein (Negative) Urine Glucose (UA) (Negative) g/dL Urine Ketones (NEGATIVE) Urine Occult Blood (Negative) Urine Nitrate (Negative) Urine Bilirubin (NEGATIVE) Urine Urobilinogen (0.2) E.U./dL Ur Leukocyte Esterase (NEGATIVE) Urine RBC (0-5/HPF) Urine WBC (0-5/HPF) Urine Bacteria (None) Ur Culture Indicated? 09/23/19 09/23/19 09/23/19 Range/Units 17:37 17:37 19:56 WBC (4.5-11.0) X10^3/uL RBC (4.5-5.9) X10^6/uL Hgb (13.5-17.5) g/dL Hct (41-53) % MCV (80-100) fL MCH (26-34) PG MCHC (30-36) % RDW (11.6-14.8) % Plt Count (150-400) X10^3/uL Neut % (Auto) (50-75) % Lymph % (Auto) (25-40) % [place] % (Auto) (3-14) % Eos % (Auto) (2-4) % Baso % (Auto) (0-2) % Neut # (Auto) (5698-7058) /uL Lymph # (Auto) (5072-9345) /uL [place] # (Auto) (0-900) /uL Eos # (Auto) (0-450) /uL Baso # (Auto) (0-100) /uL PT (10.1-12.7) SECONDS INR (0.9-1.3) APTT (26.4-36.2) SECONDS Sodium 139 (137-145) mmol/L Potassium 4.0 (3.4-5.1) mmol/L Chloride 101 (98-107) mmol/L Carbon Dioxide 32 (22-32) mmol/L BUN 13 (9-20) mg/dL Creatinine 0.94 (0.66-1.25) mg/dL Estimated GFR > 60.0 (>60) mL/min BUN/Creatinine Ratio 13.8 (6-22) Glucose 154 H (80-110) mg/dL Lactate 1.9 (0.7-2.1) mmol/L Calcium 9.3 (8.4-10.2) mg/dL Total Bilirubin 1.4 H (0.2-1.3) mg/dL AST 33 (17-59) IU/L ALT 30 (<50) IU/L Alkaline Phosphatase 54 (38-126) U/L Total Creatine Kinase (55-170) U/L CK-MB (CK-2) CK-MB (CK-2) Rel Index Troponin I (0.01-0.034) ng/mL Total Protein 7.4 (6.3-8.2) g/dL Albumin 4.3 (3.5-5.0) g/dL Globulin 3.1 (1.7-4.1) g/dL Albumin/Globulin Ratio 1.4 (1.0-2.8) Urine Color Yellow Urine Appearance Clear Urine pH 6.5 (4.5-8.0) Ur Specific [place] 1.015 (1.000-1.035) Urine Protein Negative (Negative) Urine Glucose (UA) Negative (Negative) g/dL Urine Ketones Negative (NEGATIVE) Urine Occult Blood Negative (Negative) Urine Nitrate Negative (Negative) Urine Bilirubin Negative (NEGATIVE) Urine Urobilinogen 1.0 (0.2) E.U./dL Ur Leukocyte Esterase Negative (NEGATIVE) Urine RBC None seen (0-5/HPF) Urine WBC 0-1/hpf (0-5/HPF) Urine Bacteria None seen (None) Ur Culture Indicated? Cult not indicated Discharge Plan Departure Patient Disposition: Admitted as Observation Clinical Impression: Intraventricular hemorrhage, Weakness Discharge Date/Time: 09/23/19 21:00 Referrals: Christo Woodson MD [Primary Care Provider] - Admit Date/Time: 09/23/19 20:02 Admit Provider: Gagandeep Sánchez <Thu Crowley MD - Last Filed: 09/23/19 22:59> Cosign ED Attending Cosignature Attestation: I was immediately available in the department for consultation throughout this patient's visit. I agree with documentation as above. Thu Crowley MD
[2019-09-23] MEDS: SODIUM CHLORIDE 0.9% 1,000 ML 150 ML IV (17:29)
[2019-09-23 17:53] LABS: Add Manual Diff / Slide Review NO; Basophils Absolute Auto 0 /uL (0-100); Basophils Percent Auto 0.7 % (0-2); Eosinophils Absolute Auto 400 /uL (0-450); Eosinophils Percent Auto 7.6 % (2-4); Hematocrit 36.2 % (41-53); Lymphocytes Absolute Auto 1300 /uL (1100-4500); Lymphocytes Percent Auto 24.3 % (25-40); Mean Corpuscular Hemoglobin 32.9 PG (26-34); Mean Corpuscular Volume 91.4 fL (80-100); Monocytes Absolute Auto 400 /uL (0-900); Monocytes Percent Auto 7.3 % (3-14); Neutrophils Absolute Auto 3200 /uL (1500-7000); Neutrophils Percent Auto 60.1 % (50-75); Platelet Count 178 X10^3/uL (150-400); Red Blood Cell Count 3.96 X10^6/uL (4.5-5.9); Red Cell Distribution Width 14.1 % (11.6-14.8); White Blood Cell Count 5.4 X10^3/uL (4.5-11.0)
[2019-09-23 18:01] LABS: INR 1.1 (0.9-1.3)
[2019-09-23 18:04] LABS: PTT Partial Thromboplastin Tim 32 SECONDS (26.4-36.2)
[2019-09-23 18:10] VITALS: BP 186/81; PULSE 75; RESP 21; O2SAT 97
[2019-09-23 18:10] LABS: Lactate (Lactic Acid) 1.9 mmol/L (0.7-2.1)
[2019-09-23 18:11] LABS: Alanine Aminotransferase 30 IU/L (<50); Albumin 4.3 g/dL (3.5-5.0); Albumin Globulin Ratio 1.4 (1.0-2.8); Alkaline Phosphatase 54 U/L (38-126); Aspartate Aminotransferase 33 IU/L (17-59); BUN Creatinine Ratio 13.8 (6-22); Bilirubin Total 1.4 mg/dL (0.2-1.3); Blood Urea Nitrogen 13 mg/dL (9-20); Calcium 9.3 mg/dL (8.4-10.2); Carbon Dioxide 32 mmol/L (22-32); Chloride 101 mmol/L (98-107); Creatine Kinase 46 U/L (55-170); Estimated Glomerular Filt Rate > 60.0 mL/min (>60); Globulin 3.1 g/dL (1.7-4.1); Glucose 154 mg/dL (80-110); HEMOLYSIS < 15 (0-50); Sodium 139 mmol/L (137-145); Total Protein 7.4 g/dL (6.3-8.2)
[2019-09-23 18:21] LABS: Troponin I 0.018 ng/mL (0.01-0.034)
[2019-09-23 18:30] VITALS: BP 158/77; PULSE 71; RESP 19; O2SAT 96
--- NOTE | 2019-09-23 18:59 | DI.CT.S_ITS ---
PROCEDURE: CT HEAD/BRAIN WO CON INDICATIONS: Head injury TECHNIQUE: Noncontrast 4.5 mm thick angled axial sections acquired from the foramen magnum to the vertex, with coronal and sagittal reformats. For radiation dose reduction, the following was used: automated exposure control, adjustment of mA and/or kV according to patient size. COMPARISON: [facility], CT, CT HEAD/BRAIN WO CON, 09/16/2019, 19:38. FINDINGS: Image quality: Excellent. CSF spaces: Basal cisterns are patent. No extra-axial fluid collections. Ventricular megaly stable compared to 09/16/19. Brain: Large amount of acute hemorrhage noted in the occipital and temporal horns of the right lateral ventricle. Small amount of acute hemorrhage noted in the dependent portion of the occipital horn of the left lateral ventricle. There is cerebral volume loss for age, with resultant ventricular and sulcal prominence. There are periventricular and deep white matter chronic small vessel ischemic changes. There is intracranial internal carotid artery atherosclerosis. Skull and face: Calvarium and visualized facial bones appear intact, without suspicious lesions. Sinuses: Visualized sinuses and mastoids are clear. IMPRESSION: 1. Acute interventricular hemorrhage with large amount of hemorrhage in the right lateral ventricle and small amount of hemorrhage left lateral ventricle. 2. Findings discussed with Dr. Thu Christian on 09/23/2019 at 1917 hrs. Dictated by: Kayli Valadez MD, PhD on 09/23/2019 at 19:16 Approved by: Kayli Valadez MD, PhD on 09/23/2019 at 19:21
[2019-09-23 19:31] VITALS: BP 177/77; PULSE 69; RESP 24; O2SAT 97
[2019-09-23 19:57] LABS: Bacteria Urine None Seen; RBC Urine None Seen (0-5/HPF)
[2019-09-23 19:58] LABS: Appearance Urine UA CLEAR; Bilirubin Urine UA NEGATIVE (NEGATIVE); Color Urine UA YELLOW; Glucose Urine UA NEGATIVE (Negative); Ketones Urine UA NEGATIVE (NEGATIVE); Leukocyte Esterase Urine UA NEGATIVE (NEGATIVE); Nitrite Urine UA NEGATIVE (Negative); Occult Blood Urine UA NEGATIVE (Negative); Protein Urine UA NEGATIVE (Negative); Specific Gravity Urine UA 1.015 (1.000-1.035); pH Urine UA 6.5 (4.5-8.0)
[2019-09-23 20:00] VITALS: BP 164/72; PULSE 73; RESP 19; O2SAT 97
[2019-09-23 20:17] LABS: Culture Indicated Urine Cult Not Indicated; WBC Urine 0-1/HPF (0-5/HPF)
[2019-09-23 20:31] VITALS: BMI 22.0
--- NOTE | 2019-09-23 20:55 | P.HP_ITS ---
History of Present Illness History of Present Illness Date Patient Seen: 09/23/19 Time Patient Seen: 20:55 Date of Onset of Symptoms: 09/23/19 Chief complaint: Weakness Narrative: This is an 83-year-old male with Parkinson's dementia who lives at home with his . This morning when she went to get him up for breakfast he was too weak to move and so she fed him in bed and watched him for several hours until bringing him in to be evaluated because his weakness was not improving. A brain CT shows an Acute intraventricular hemorrhage with large amount of hemorrhage in the right lateral ventricle and small amount of hemorrhage in the left lateral ventricle. This is new compared to his CT scan from 1 week ago. He had presented 1 week ago with a fall and laceration to the left eyebrow. He did not have this weakness then and was doing well as recently as last evening. His bleed appears to have occurred overnight. He has no history of a stroke but does have advanced Parkinsons Disease with related Dementia. it's not clear why he is not on the usual Parkinsons medicines. His appears to be very caring and a good caregiver but language barriers appear to be a factor. He has had no fevers, vomiting, hematuria or extremity injuries. Despite his frequent falls his most recent fall was one week ago. He has a hospital bed at home so spends a lot of time in bed. His CXR, CBC, BMP and UA are all normal except for a BS of 154. He has no history of Diabetes. His declined transfer for neurosurgical evaluation but wishes him to be treated conservatively here. Patient History Medical History (Updated 09/23/19 @ 21:04 by Gagandeep Sánchez MD) BPH (benign prostatic hyperplasia) (Acute) Dementia in Parkinson's disease (Acute) Falls frequently (Acute) Hypertension (Acute) Parkinson disease (Acute) Surgical History (Updated 09/23/19 @ 21:32 by Gagandeep Sánchez MD) History of back surgery (Acute) Family & Social History Family history unavailable: Yes Social History: He is unable to communicate a family history. His doesn't seem to be well informed about family history. His Cheryl is his backup decision maker He is quite limited in his communication ability by his dementia. Safety & Behavioral: Feels Safe in Current Yes Environment Tobacco & Substance use: Smoking Status Never smoker Substance Use Type does not use Meds Home Medications and Allergies Home Medications Medication Instructions Recorded Confirmed Type aspirin 81 mg PO QDAY #0 09/19/12 09/23/19 History donepezil [Aricept] 10 mg PO HS #0 09/19/12 09/23/19 History nitroglycerin [Nitrostat] 0.4 mg SUBLINGUAL PRN #0 09/19/12 09/23/19 History cetirizine 10 mg PO QDAYP PRN #0 03/05/17 09/23/19 History atorvastatin 20 mg PO BEDTIME 09/23/19 09/23/19 History carbidopa-levodopa 1 tab PO TID 09/23/19 09/23/19 History clopidogrel [Plavix] 75 mg PO DAILY 09/23/19 09/23/19 History metformin 500 mg PO BID 09/23/19 09/23/19 History metoprolol succinate 25 mg PO BID 09/23/19 09/23/19 History pantoprazole 40 mg PO DAILY 09/23/19 09/23/19 History quetiapine 50 mg PO BEDTIME 09/23/19 09/23/19 History tamsulosin 0.4 mg PO BEDTIME 09/23/19 09/23/19 History Allergies Allergy/AdvReac Type Severity Reaction Status Date / Time vancomycin [VANCOMYCIN] Allergy Severe FACIAL Verified 09/23/19 16:40 SWELLING Review of Systems Review of Systems Narrative: Positive for frequent falls, increased confusion and weakness. No reported fevers, coughing, vomiting, diarrhea, bleeding. ROS: Yes unobtainable due to mental status Exam Vital Signs (past 8 hours): - 09/23/19 16:40 09/23/19 18:10 09/23/19 18:30 Temperature 97.9 F Pulse Rate 72 75 71 Respiratory Rate 18 21 19 Blood Pressure 169/75 H Blood Pressure [Right Arm] 186/81 H 158/77 H Pulse Oximetry 96 97 96 09/23/19 19:31 09/23/19 20:00 Temperature Pulse Rate 69 73 Respiratory Rate 24 19 Blood Pressure Blood Pressure [Right Arm] 177/77 H 164/72 H Pulse Oximetry 97 97 Oxygen Delivery Method Room Air Narrative Exam Narrative: Alert and tries to communicate but is not able to accurately give his name. Not oriented to date or place. Remarkably, he is able to follow exam instructions quite well. Pupils equally round and reactive to light and accommodation. Extraocular muscles intact. Sclerae are pink and nonicteric. No lymph nodes are felt head, neck, supraclavicular area. JVD is less 6 cm. Throat looks normal. No carotid bruits are heard. There is no thyromegaly. Heart is regular rate and rhythm without murmur. Lungs are clear to auscultation bilaterally. Abdomen is soft bowel sounds positive and nontender there is no organomegaly. Extremities have no ankle edema Neurological exam Babinski's are downgoing bilaterally Cranial nerves 2-12 test intact. Motor function is 4/5 throughout and symmetric. There is a mild pill-rolling tremor. There is significant cogwheeling. His facial expressions are rather flat. Skin no rash or jaundice. He does have some bruising around the healing laceration above the left eyebrow where the sutures were just removed today. Objective Labs Result Diagrams: 09/23/19 17:37 09/23/19 17:37 Labs: Laboratory Results - last 24 hr 09/23/19 09/23/19 09/23/19 17:04 17:37 17:37 WBC 5.4 RBC 3.96 L Hgb 13.0 L Hct 36.2 L MCV 91.4 MCH 32.9 MCHC 36.0 RDW 14.1 Plt Count 178 Neut % (Auto) 60.1 Lymph % (Auto) 24.3 L Dix[place] % (Auto) 7.3 Eos % (Auto) 7.6 H Baso % (Auto) 0.7 Neut # (Auto) 3200 Lymph # (Auto) 1300 Dixie # (Auto) 400 Eos # (Auto) 400 Baso # (Auto) 0 PT 13.0 H INR 1.1 APTT 32 Sodium Potassium Chloride Carbon Dioxide BUN Creatinine Estimated GFR BUN/Creatinine Ratio Glucose Lactate Calcium Total Bilirubin AST ALT Alkaline Phosphatase Total Creatine Kinase 46 L CK-MB (CK-2) TNP CK-MB (CK-2) Rel Index TNP Troponin I 0.018 Total Protein Albumin Globulin Albumin/Globulin Ratio Urine Color Urine Appearance Urine pH Ur Specific [place] Urine Protein Urine Glucose (UA) Urine Ketones Urine Occult Blood Urine Nitrate Urine Bilirubin Urine Urobilinogen Ur Leukocyte Esterase Urine RBC Urine WBC Urine Bacteria Ur Culture Indicated? 09/23/19 09/23/19 09/23/19 17:37 17:37 19:56 WBC RBC Hgb Hct MCV MCH MCHC RDW Plt Count Neut % (Auto) Lymph % (Auto) [place] % (Auto) Eos % (Auto) Baso % (Auto) Neut # (Auto) Lymph # (Auto) [place] # (Auto) Eos # (Auto) Baso # (Auto) PT INR APTT Sodium 139 Potassium 4.0 Chloride 101 Carbon Dioxide 32 BUN 13 Creatinine 0.94 Estimated GFR > 60.0 BUN/Creatinine Ratio 13.8 Glucose 154 H Lactate 1.9 Calcium 9.3 Total Bilirubin 1.4 H AST 33 ALT 30 Alkaline Phosphatase 54 Total Creatine Kinase CK-MB (CK-2) CK-MB (CK-2) Rel Index Troponin I Total Protein 7.4 Albumin 4.3 Globulin 3.1 Albumin/Globulin Ratio 1.4 Urine Color Yellow Urine Appearance Clear Urine pH 6.5 Ur Specific [place] 1.015 Urine Protein Negative Urine Glucose (UA) Negative Urine Ketones Negative Urine Occult Blood Negative Urine Nitrate Negative Urine Bilirubin Negative Urine Urobilinogen 1.0 Ur Leukocyte Esterase Negative Urine RBC None seen Urine WBC 0-1/hpf Urine Bacteria None seen Ur Culture Indicated? Cult not indicated Assessment & Plan Assessment & Plan narrative: Intraventricular Bleed, present on admission, acute - Acute intraventricular hemorrhage with large amount of hemorrhage in the right lateral ventricle and small amount of hemorrhage in the left lateral ventricle. This is new compared to his CT scan from 1 week ago - Stop Aspirin and Plavix - Begin PT and OT evals - Speech therapy for cognition, speech and swallow - discharge planning, likely to need placement for rehab - BP control, continue Metoprolol Parkinsons Dementia, present on admission, chronic - Continue Donepezil and Seroquel Parkinsons, present on admission, chronic - Continue Donepezil, apparently he is not on the usual Parkinsons medicines (Correction - he is on Sinemet which will be continued) - PT, OT and Speech therapy Hypertension, present on admission, chronic - Admit BP 164/72 - Continue Metoprolol Hyperglycemia, present on admission, acute - Blood Sugar 154, follow accuchecks and check A1C - Admit med of Metformin suggests a prior diagnosis of DM 2 Hyperlipidemia, present on admission, chronic - Continue Lipitor BPH, present on admission, chronic - Continue Flomax Frequent Falls, present on admission, acute - PT and OT consults ordered COVID-19 COVID-19 status: Not tested
[2019-09-23 21:15] VITALS: BP 154/72; PULSE 69; RESP 18; TEMP 36.6; O2SAT 98
--- NOTE | 2019-09-23 22:25 | PC.NURSE ---
2114- Pt arrived to room 218 from ED via stretcher. at bedside. Pt Hx Alzheimer's, Parkinson's, [place], GERD. Pt had 8 stitches removed above left eyebrow in the ED, from a fall 09/16/2019, with Dx acute hemorrhage occipital temporal horns of the right lateral ventricle ,along with chronic Lt rib Fx. Pt speaking Icelandic most of time, but completely understands Yi. reports every since the stroke, and Alzheimer's worsening, he speaks Icelandic. Pt with increased weakness, 2PA when up with FWW. states I change and clean him in the bed now, i's easier for the both of us. and he doesn't like to be touched or cleaned by anyone else. said she would come back and spend the night here. Pt A/O, unable to answer questions, 98% RA unproductive cough denies SOB, BT+, PP+, RFA SL, with coband, brief and yellow gown on, DM-II controlled with diet and metformin BID. resting comfortably with HOB 45 degrees. reports he aspirates. Pt takes carbidopa/levo 25/100 TID. Music on in room, call light in reach.
[2019-09-24] VITALS (9 sets, daily range): BP systolic 139–156; BP diastolic 62–75; PULSE 61–77; RESP 15–18; TEMP 36.2–36.9; O2SAT 96–98
[2019-09-24] MEDS: SODIUM CHLORIDE 0.9% 1,000 ML 80 ML IV (00:50)
[2019-09-24 05:50] LABS: Add Manual Diff / Slide Review NO; Basophils Absolute Auto 0 /uL (0-100); Basophils Percent Auto 0.6 % (0-2); Eosinophils Absolute Auto 500 /uL (0-450); Eosinophils Percent Auto 8.9 % (2-4); Hematocrit 33.7 % (41-53); Lymphocytes Absolute Auto 1400 /uL (1100-4500); Lymphocytes Percent Auto 24.5 % (25-40); Mean Corpuscular HGB Conc 35.7 % (30-36); Mean Corpuscular Hemoglobin 32.8 PG (26-34); Mean Corpuscular Volume 91.9 fL (80-100); Monocytes Absolute Auto 400 /uL (0-900); Monocytes Percent Auto 7.6 % (3-14); Neutrophils Absolute Auto 3300 /uL (1500-7000); Neutrophils Percent Auto 58.4 % (50-75); Platelet Count 161 X10^3/uL (150-400); Red Blood Cell Count 3.66 X10^6/uL (4.5-5.9); Red Cell Distribution Width 14.3 % (11.6-14.8); White Blood Cell Count 5.7 X10^3/uL (4.5-11.0)
[2019-09-24 06:03] LABS: Hemoglobin A1C% w Est Avg Glu 6.7 % (4.0-6.0)
[2019-09-24 06:05] LABS: BUN Creatinine Ratio 13.7 (6-22); Blood Urea Nitrogen 10 mg/dL (9-20); Calcium 8.5 mg/dL (8.4-10.2); Carbon Dioxide 27 mmol/L (22-32); Chloride 106 mmol/L (98-107); Estimated Glomerular Filt Rate > 60.0 mL/min (>60); Glucose 124 mg/dL (80-110); HEMOLYSIS < 15 (0-50); Potassium 3.3 mmol/L (3.4-5.1); Sodium 139 mmol/L (137-145)
[2019-09-24] MEDS: METFORMIN HCL 500 MG TABLET PO ×2 (08:38→21:40)
[2019-09-24] MEDS: FAMOTIDINE 20 MG TABLET PO ×2 (08:38→21:40)
[2019-09-24] MEDS: CARBIDOPA-LEVODOPA 25/100 TABLET 1 EACH PO ×3 (08:38→21:40)
[2019-09-24] MEDS: METOPROLOL ER 25 MG TABLET PO ×2 (08:38→21:40)
--- NOTE | 2019-09-24 11:42 | PT.IIE ---
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) Surgical History (Last Updated 09/23/19 @ 21:32 by Gagandeep Sánchez MD) History of back surgery (Acute) Medical History (Last Updated 09/23/19 @ 21:04 by Gagandeep Sánchez MD) BPH (benign prostatic hyperplasia) (Acute) Dementia in Parkinson's disease (Acute) Falls frequently (Acute) Hypertension (Acute) Parkinson disease (Acute) Physical Therapy Inpatient Evaluation/Re-Eval M1 PT/OT-IP Prior Functional Status Start: 09/24/19 13:05 Freq: NEEDED Status: Active Protocol: Document 09/24/19 13:05 [facility] (Rec: 09/24/19 13:33 [facility] [id number]) Medical Review Prior Functional Status Medical History Reviewed Yes Communication Pt has Alzheimer's and able orientated to his name and knwo his wif's name. Pt able to states his needs at times. Usually pt's speaks for him and answers for him. Mobility and Gait Prior pt's states able to walk with with FWW and use of WC to follow fro short distance in the house. Lately since his fall he has mostly been in the hospital bed. Activities of Daily Living and IADL's Pt's assist for all needs . Per pt able to assist a little for putting on his shirt and grooming needs. Lately per has been doing all his dresing and toileting needs form the hospital bed. Prior Functional Level (Other details) Pt's had a caregiver that came in 2/wk for 4-5 hours to assist pt with showering and be with the pt so that she could go shopping and run errends. Pt's now looking into hiring caregiver for more hours during the day. Social History Household Members spouse Living Arrangements House Number of Stairs To Enter/Railing? 2 steps , but pt had a temporary ramp. Pt's states that she is unable to push the pt up the WC ramp at this time due to her bad back. Home Environment Walk in Shower Home Equipment Front Wheel Walker,Manual Wheelchair,Bedside Commode, Raised Toilet Seat w/Armrests, Shower Seat with Backrest,Hand Held Shower,Mechanical Lift, Hospital Bed,Bed Rails,Grab Bars Near Toilet,Grab Bars In Shower Additional Social History Comment Pt's daughter, an OT coming from [facility] to assist for the weekend. M1 PT/OT-IP Prior Functional Status Start: 09/24/19 13:46 Freq: NEEDED Status: Active Protocol: Document 09/24/19 11:42 AB (Rec: 09/24/19 14:05 AB [id number]) Medical Review Prior Functional Status Medical History Reviewed Yes Communication able to make needs known but unable to answer to questions Mobility and Gait pt stated that she assists pt will all tasks: assists pt with getting in/out of hospital bed, able stand and occasionally able to ambulate using FWW but spouse stated that lately, pt is unable to do much and unable to ambulate . Activities of Daily Living and IADL's spouse stated that she assists pt with ADLS; has been assisting pt with toileting and hygiene care in bed as pt is needing more assist to transfer to the toilet. Prior Functional Level (Other details) spouse stated that a caregiver comes in 2/wk for 4-5 hours to assist pt and also assists pt with bathing needs. Social History Household Members spouse Living Arrangements House Number of Floors (Floors) One Floor Number of Stairs To Enter/Railing? ramp to enter Home Environment Standard Height Toilet,Walk in Shower,Ramp Home Equipment Front Wheel Walker,Manual Wheelchair,Raised Toilet Seat w/Armrests,Shower Seat with Backrest,Hand Held Shower,Lift Recliner,Mechanical Lift, Hospital Bed,Grab Bars Near Toilet,Grab Bars In Shower Additional Social History Comment spouse stated that she has been helping pt but has back issues limiting assistance that she can provide. M2 PT-IP Current Condition Start: 09/24/19 13:46 Freq: NEEDED Status: Active Protocol: Document 09/24/19 11:42 AB (Rec: 09/24/19 14:05 AB [id number]) Physical Therapy Current Condition Current Condition Evaluation Date 09/24/19 Treatment Diagnosis intraventricular hemorrhage; PD; difficulty in walking Onset Date 09/23/19 Precautions Other Precautions falls M3 PT-IP Subjective Start: 09/24/19 13:46 Freq: NEEDED Status: Active Protocol: Document 09/24/19 11:42 AB (Rec: 09/24/19 14:05 AB [id number]) Subjective Physical Therapy Visit Type Type Initial Evaluation Visit Start Time 11:42 Visit Stop Time 12:27 Total Visit Minutes 45 Number of MECHANIC SOUND TECHNICIAN Visits 0 Physical Therapy Visit Comments Patient Comments spouse in room with pt and spouse answers most questions for pt M4 PT-IP Mobility and Gait Start: 09/24/19 13:46 Freq: NEEDED Status: Active Protocol: Document 09/24/19 11:42 AB (Rec: 09/24/19 14:05 AB [id number]) PT-Bed Mobility Assessment Rolling Type of Rolling Log Rolling Level of Assist Maximal Assistance Supine to Sit Supine to Sit Maximum Assistance,Total Assistance,2 Person Assistance PT-Transfer Assessment Sit to and From Stand Sit to and from Stand Maximum Assistance,2 Person Assistance,Use of Upper Extremities Equipment Transfer Assistive Device Gait Belt,Front Wheeled Walker Orthotic/Prosthetic Devices or Brace: No Transfers Transfer Destination Chair Transfer Technique Stand Pivot Transfer Ability Level of Assist Maximum Assistance,2 Person Assistance,Use of Upper Extremities Comments Mobility Comments completed rolling L<>R max Ax2 with NAC assisting pt with hygiene care. spouse has to hold on to pt's 2 hands as pt can be combative during hygiene care. pt completed supine to sit max A x 2 to total A x 2 and max cues. pt was able to sit on EOB requiring mod to max A to maintain sitting balance with pt exhibiting increase posterior trunk lean and increase L sided leaning. pt with (+) trunk rigidity. pt completing sit to stand max A x 2 and max cues and was able to take ~ 2 step using FWW but with (+) freezing episode with increase forward trunk lean. assisted pt to chair requiring max A x 2 to total Ax 2. postioned pt on chair. call light and table placed within reach. Left pt with spouse in room. Gait Assessment Gait Deviations General Gait Pattern Decreased Stride Length, Decreased Feet Clearance, Flexed Trunk,Narrow Based Gait Factors Limiting Gait Function Factors Limiting Gait Function Abnormal Tonal Influences, Decreased Activity Tolerance, Decreased Sensation,Decreased Strength,Difficulty Following Directions,Limited Range of Motion,Poor Balance,Poor Safety Awareness Comments Gait Comments took ~ 2 steps using FWW max A x 2 and max cues PT-Balance Assessment Sitting Balance and Reactions Static Sitting Balance Ability Fair Dynamic Sitting Balance Ability Poor Standing Balance and Reactions Static Standing Balance Ability Poor Dynamic Standing Balance Ability Poor Device Used FWW M5 PT-IP Objective Assessments Start: 09/24/19 13:46 Freq: NEEDED Status: Active Protocol: Document 09/24/19 11:42 AB (Rec: 09/24/19 14:05 AB [id number]) Orientation Orientation/Cognition Level of Alertness Confusional State Safety Awareness Decreased Safety Awareness Memory Description Short Term Impaired,Keypunch Operators Supervisor Impaired Gross Range of Motion Lower Extremity ROM Assessment Within Functional Limits Strength Lower Extremity Strength Assessment Within Functional Limits Comments Strength Comments requires cues and assist with initiation to move BLE Muscle Tone Muscle Tone WNL No Muscle Tone Location Bilateral Lower Extremity Type of Tone Hypertonicity,Rigidity Severity of Tone Moderate Comments Muscle Tone Comments also increase trunk rigidity during mobility with (+) freezing episodes M7 PT-IP Assessment and Plan Start: 09/24/19 13:46 Freq: NEEDED Status: Active Protocol: Document 09/24/19 11:42 AB (Rec: 09/24/19 14:05 AB [id number]) PT Summary Assessment and Plan Potential Rehabilitation Potential Fair Status of Condition at Evaluation Evolving Summary Impairments Pain,ROM,Strength,Balance, Coordination,Sensation,Tone, Cognition,Bed Mobility, Transfers,Gait,Activity Tolerance Assessment Summary pt requiring max A x 2 to total A X 2. pt has spouse to assist him but also has a caregiver that comes in 2x/ week for ~ 4 hours. informed spouse that she will need more assistance and is agreeable to look for another caregiver to assist her with pt. spouse stated that she was an NAC before she took care of spouse and has all equipement nees at home. spouse prefers pt to go home and may go home if adequate assistance if available. Goals Bed Mobility Goal Moderate Assistance Transfer Goal Moderate Assistance,Front Wheeled Walker Gait Goal Moderate Assistance,Front Wheel Walker Gait Distance 25 Days to Meet Goals 10 Frequency of Treatment Frequency Of Treatment Once a Day Treatment Plan Physical Therapy Treatment Plan Bed Mobility Training,Transfer Training,Gait Training, Therapeutic Exercise,Balance Retraining,Discharge Planning, Neuromuscular Re-ed, Coordination Retraining,Manual Therapy Other Recommendations and Next Treatment transfers, ambulation, Focus caregiver training Recommendations To Nursing Amount of Assist Needed PT/OT Assist Only,Mechanical Lift Discharge Recommendations PT Discharge Recommendations Home with 24/7 Assist,Home Health Transportation Needs at Discharge Wheelchair/Cabulance,Stretcher /Ambulance
--- NOTE | 2019-09-24 12:27 | OT.IP.EVAL ---
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) Past Medical History (Last Updated 09/23/19 @ 21:04 by Gagandeep Sánchez MD) BPH (benign prostatic hyperplasia) (Acute) Dementia in Parkinson's disease (Acute) Falls frequently (Acute) Hypertension (Acute) Parkinson disease (Acute) Surgical History (Last Updated 09/23/19 @ 21:32 by Gagandeep Sánchez MD) History of back surgery (Acute) Occupational Therapy Inpatient Evaluation/Re-Eval M1 PT/OT-IP Prior Functional Status Start: 09/24/19 13:05 Freq: NEEDED Status: Active Protocol: Document 09/24/19 13:05 [facility] (Rec: 09/24/19 13:33 [facility] [id number]) Medical Review Prior Functional Status Medical History Reviewed Yes Communication Pt has Alzheimer's and able orientated to his name and to state his 's name. Pt able to state his needs at times. Usually pt's speaks for him and answers for him. Mobility and Gait Prior pt's states pt able to walk with with FWW and used to to follow for short distances in the house. Lately since his fall he has mostly been in the hospital bed. Activities of Daily Living and IADL's Pt's assist for all needs . Per pt able to assist a little for putting on his shirt and grooming needs. Lately per has been doing all his dressing, toileting, and bathing needs from the hospital bed. Prior Functional Level (Other details) Pt's had a caregiver that came in 2/wk for 4-5 hours to assist pt with showering and be with the pt so that she could go shopping and run errands. Pt's now looking into hiring caregiver for more hours during the day. Social History Household Members spouse Living Arrangements House Number of Stairs To Enter/Railing? 2 steps , but pt had a temporary ramp. Pt's states that she is unable to push the pt up the ramp at this time due to her bad back. Home Environment Walk in Shower Home Equipment Front Wheel Walker,Manual Wheelchair,Bedside Commode, Raised Toilet Seat w/Armrests, Shower Seat with Backrest,Hand Held Shower,Mechanical Lift, Hospital Bed,Bed Rails,Grab Bars Near Toilet,Grab Bars In Shower Additional Social History Comment Pt's daughter, an OT coming from [place] to assist for the weekend. 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 Patient/Caregiver Goals Pt's would like to take pt home with possibly hospice or home health and hire caregivers to assist. OT Pain Assessment Pain When Pain Assessed At Rest Pain Present Pain Present Denied Pain M4 OT- IP ADL's Start: 09/24/19 13:05 Freq: Status: Active Protocol: Document 09/24/19 13:05 [facility] (Rec: 09/24/19 13:33 [facility] [id number]) OT XQL-Ohgf-Huerfus Comments OT Self-Feeding Comments Pt's assist pt for self feeding. OT ADL-Grooming Comments OT Grooming Comments Not performed. OT ADL-Dressing General Eval Lower Body Dressing Ability Total Assistance Areas Needing Assistance Underpants/Brief,Socks Comments OT Dressing Comments Total assist while in bed. OT ADL-Toileting General Evaluation Toileting Ability Total Assistance Comments OT Toileting Comments Total assist while in bed, pt able to use grab bars to assist to roll with MAX A X1. Pt's holding his hands as pt does not like having his hygiene done and resists at times. M5 OT- IP IADL's Start: 09/24/19 13:05 Freq: Status: Active Protocol: Document 09/24/19 13:05 [facility] (Rec: 09/24/19 13:33 [facility] [id number]) OT-Instrumental Activities of Daily Living Deficits IADL Deficits Identified Deficits Home Safety Awareness Awareness of Need for Assistance at Home Decreased Awareness Ability to Problem Solve Emergency Unable to Problem Solve Situations Home Safety Comments Pt is dependent on his for IADL needs. M6 OT- IP Functional Cognition Start: 09/24/19 13:05 Freq: Status: Active Protocol: Document 09/24/19 13:05 [facility] (Rec: 09/24/19 13:33 [facility] [id number]) Cognitive Factors Limiting Selfcare Function Cognitive Ability Level of Alertness Confusional State Patient Orientation Name Attention Span Ability Unable to Focus,Unable to Sustain Attention Ability to Follow Commands Able to Follow One Step Commands with Increased Time, Able to Follow One Step Commands with Repetition Memory Description Immediate Impaired,Short Term Impaired,Occupational Hygienist Impaired, Working Impaired Safety Awareness Underestimates Need for Assistance Problem Solving Ability Unable to Identify Errors, Needs Assist to Identify Solutions Cognitive Comments Cognitive Assessment Comments Pt has Alzheimer's and needing concrete simple steps to follow. At times needing tactile cue to initiate movements. OT- Vision and Hearing OT- Hearing Assessment OT- Hearing Assessment WFL M7 OT- IP Mobility and Balance Start: 09/24/19 13:05 Freq: Status: Active Protocol: Document 09/24/19 13:05 [facility] (Rec: 09/24/19 13:33 [facility] [id number]) OT- Bed Mobility Assessment Rolling Level of Assistance Maximum Assistance,1 Person Assistance Supine to Sit Supine to Sit Assist Maximum Assistance,2 Person Assistance Scooting Scooting to Edge of Bed Maximum Assistance,2 Person Assistance OT-Transfer Assessment Sit to and From Stand Sit to and from Stand Maximum Assistance,2 Person Assistance Transfers Transfer Ability Maximum Assistance,2 Person Assistance Technique Transfer Destination Bed,Chair Transfer Technique Stand Step Pivot Devices Transfer Assistive Devices Gait Belt,Front Wheeled Walker Comments Mobility Comments MAX AX2 for mobility needs. Pt tends to stiffen, and lean to the right and posteriorly. Pt stood to FWW with MAX X x2 and able to take 2 steps with tactile and assist to move his legs and then as unable to turn use of his hips to help guide him back donw to the recliner. For safety at this time, best to use rc lift for transfer and possible sit to stander- to try the next session with pt. OT- Balance Assessment Sitting Balance and Reactions Static Sitting Balance Ability Poor Dynamic Sitting Balance Ability Poor Standing Balance and Reactions Static Standing Balance Ability Poor Dynamic Standing Balance Ability Poor M8 OT- IP Objective Assessments Start: 09/24/19 13:05 Freq: Status: Active Protocol: Document 09/24/19 13:05 [facility] (Rec: 09/24/19 13:33 [facility] [id number]) OT-Muscle Tone Assessment Muscle Tone WNL No Comments Muscle Tone Comments Hypertonicity. M9 OT- IP Assessment and Plan Start: 09/24/19 13:05 Freq: Status: Active Protocol: Document 09/24/19 13:05 [facility] (Rec: 09/24/19 13:33 [facility] [id number]) OT Summary Assessment and Plan Potential Rehabilitation Potential Fair Analytic Complexity at Evaluation Moderate Summary OT Impairments Functional Mobility,Dressing, Toileting,Bathing,Activity Tolerance Progress Towards Goals Slow Progress due to Medical Issues,Slow Progress due to Activity Tolerance,Slow Progress due to Cognition Assessment Summary Pt MOD complexity due to recent acute hemorrhage 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 Pt's looking to take pt home and would benefit form continued OT to work with pt's on caregiver training and going over best equipment options for pt at home. At this time pt's with need another person to come and assist her especially for toileting, bathing, and mobility needs. Goals Patient/Caregiver Education Goal Caregiver Independent Assisting Patient OT-Other Goals Pt's to be able to safely assist pt for all needs and have good understanding for equipment needs. Days to Meet Goals 5 Frequency of Treatment Frequency Of Treatment Once a Day Treatment Plan OT Treatment Plan ADL Training,Functional Mobility,Patient/Family Education Other Treatment Recommendations and Next Caregiver training. Treatment Focus Discharge Recommendations OT Discharge Recommendations Home with 12/11 Assist,Home Health Transportation Needs at Discharge Wheelchair/Cabulance
--- NOTE | 2019-09-24 13:25 | ST.IPCSEOM ---
Visit Care Team Role Provider Type Christo Woodson MD Family Provider Physician Primary Care Provider Specialty: Internal Medicine Address: [address] [place] [address], [id number] Email: [email or web address] VIJAY Burden Emergency Provider Advanced Visual Arts Teacher Referring Provider Specialty: EM Address: [address] [place] [address], [id number] Email: Gagandeep Sánchez MD Admit Provider Physician Attending Provider Specialty: Medical Address: [address] [place] [address], [phone] Email: 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) Past Medical History (Last Updated 09/23/19 @ 21:04 by Gagandeep Sánchez MD) BPH (benign prostatic hyperplasia) (Acute Medical) Dementia in Parkinson's disease (Acute Medical) Falls frequently (Acute Medical) Hypertension (Acute Medical) Parkinson disease (Acute Medical) Speech-Language Pathology Swallow Evaluation KNITTING MACHINE FIXER HEAD Clinical Swallow Evaluation Start: 09/24/19 12:11 Freq: Status: Active Protocol: Document 09/24/19 12:20 LL (Rec: 09/24/19 12:51 LL [id number]) Clinical Swallow Evaluation Session Time Visit Start Time 10:30 Visit Stop Time 11:45 Total Visit Minutes 75 Referral Referring Physician Manuel Sánchez MD Reason for Referral Acute intraventricular hemorrhage Setting Assessment Location Acute Care Visit Type Note Type Initial Evaluation Next Note Type Next Note Type Treatment Note Patient Information Identification Type Name,ID Wristband History Per H &P report: Cosme is an 83-year-old male with Parkinson's dementia who lives at home with his . This morning when she went to get him up for breakfast he was too weak to move and so she fed him in bed and watched him for several hours until bringing him in to be evaluated because his weakness was not improving. A brain CT shows an acute intraventricular hemorrhage with large amount of hemorrhage in the right lateral ventricle and small amount of hemorrhage in the left lateral ventricle. This is new compared to his CT scan from 1 week ago. He had presented 1 week ago with a fall and laceration to the left eyebrow. He did not have this weakness then and was doing well as recently as last evening. His bleed appears to have occurred overnight. He has no history of a stroke but does have advanced Parkinson? s disease with related Dementia. Tt's not clear why he is not on the usual Parkinson?s medications. His appears to be very caring and a good caregiver but language barriers appear to be a factor. He has had no fevers, vomiting, hematuria or extremity injuries. Despite his frequent falls his most recent fall was one week ago. He has a hospital bed at home so spends a lot of time in bed . His CXR, CBC, BMP and UA are all normal except for a BS of 154. He has no history of diabetes. His declined transfer for neurosurgical evaluation but wishes him to be treated conservatively here . Medical History List: BPH (benign prostatic hyperplasia) (Acute) Dementia in Parkinson's disease (Acute) Falls frequently (Acute) Hypertension (Acute) Parkinson?s disease (Acute) Subjective Observations Patient was sitting up in bed awake, alert, and agreeable for ST evaluation. Patient's and primary caregiver, Cheryl was present throughout entire session. Patient's social work specialist was also present for half of the session. KNITTING MACHINE FIXER HEAD spoke to patient' s to obtain additional medical history information, previous therapy services, and treatment goals (e.g., between OT, ST, and PT). expressed that she wanted this KNITTING MACHINE FIXER HEAD to assess patient?s swallow function due to history of GERD and swallowing difficulty likely due to the progression of Parkinson?s disease and dementia/Alzheimer ?s disease. reported that patient throat clears and coughs when he eats too fast. fully assists her with his ADLS/IADLS, including feeding . reported that patient currently consumes mechanical soft textures and thin liquids at home. reported that she works as a caregiver at [facility] assisted living facility / memory care unit and has proper training/skills to take care of her at home. Per patient?s report, patient was at a memory care unit for some period of time and returned home after his realized her ?s health was quickly declining. also reported that she would like for her to receive home health therapy services because he does better at home and is familiar/comfortable with the house layout. Evaluation Liquids Trialed Ice Chips,Thin Solids Trialed Puree,Dysphagia Mechanical, Mechanical Soft Administration Type Tea Spoon,Cup Single Sip, Controlled Cup Sip,Straw, Dependent Feeding Oral Impairment Moderately Impaired Oral Strategies Upright at 90 degrees, Controlled Bite/Sip Size, Alternate Liquids/Solids, Dementia Strategies Oral Phase Comments Oral Peripheral Exam: Flat affect likely due to dx of Parkinson's disease. Generalized weakness. Slow and moderately impaired lingual/ labial ROM/strength/ coordination. Mild left side labial droop, mild right side lingual deviation, and moderate lingual tremor. Patient wears upper dentures and has natural bottom dentition. Hyolaryngeal elevation and anterior excursion WNL via palpation. Oral Phase: Appropriate oral acceptance with no anterior bolus loss. Slowed mastication , bolus prep, and a/p propulsion. No abnormal oral residue was observed. O2 sats remained 97-99 throughout all PO trials. Pharyngeal Impairment WFL Pharyngeal Strategies Sitting Upright (90 deg),Small Bites and Sips,Alternate Liquids/Solids Pharyngeal Phase Comments The patient exhibited 2 short episodes of dry coughing before and after the swallow evaluation. No throat clearing and/or wet coughing was observed during the swallow evaluation. Patient consumed all diet textures and thin liquid (ice water) without any overt s/sx of aspiration observed by this KNITTING MACHINE FIXER HEAD. O2 sats remained 97-99 throughout all PO trials. Findings Dysphagia Type Mild-moderate oral phase dysphagia Rehabilitation Potential Fair Impressions Patient presents with mild- moderate oral phase dysphagia likely secondary to generalized weakness, dx of Parkinson's disease, and dx of Alzheimer's disease / dementia. Patient tolerated thin liquid from cup and straw and all solid trials with no overt s/sx of aspiration. Reviewed findings and explained ST POC with patient, /caregiver, and social work specialist. KNITTING MACHINE FIXER HEAD provided patient's with two simple communication boards to use as needed (e.g., reported that patient is no longer able to say that he needs to use the restroom). KNITTING MACHINE FIXER HEAD also provided education about performing oral care to maintain adequate oral hygiene . reported that she performs oral care on her several times per day. Diet Recommendations Liquids Order Thin Diet Order Mechanical Soft Medication Recommendations As Tolerated Comments Mech soft with extra sauce and gravy Additional Dietary Needs Chopped Food,Single Sips, Controlled Sips,1:1 Assistance Aspiration Precautions Recommended Precautions Upright at 90 Degrees, Alternate Liquids/Solids,Small Bites/Sips,Check for Pocketing Treatment Plan Placement Recommendations after Home with Home Health Discharge Appropriate for Therapy Yes Therapy Recommendations Ongoing assessment with toleration of diet as appropriate. Ongoing pt/family education and training of compensatory swallowing / feeding strategies. Will follow up x 1-2 for ongoing assessment and patient /caregiver education. Dysphagia Goals 1. The patient will tolerate least restrictive diet to meet his nutrition and hydration needs. 2. The patient and/or caregiver will perform safe swallow and feeding strategies .
--- NOTE | 2019-09-24 13:30 | CM.IDA ---
Initial DCP Assessment Note: Patient is an 83 yo, resident of [place], [place]. Patient presents w/weakness and confirmed intraventricular bleed, acute. h/o Parkinsons Alz dementia, severe PCP: Dr Woodson Payer: MCR/DOUGLASP Reviewed chart. Met w/patient and spouse at bedside during multidisciplinary rounds, introduced role. Then returned to speak w/spouse Cheryl, whom has stayed w/patient at bedside since arrival. Patient speaks mostly in Dutch, not A+O. According to conversation w/spouse: Patient and spouse live together in [place], they have been for 8 years. patient and spouse met at their restorationism after patient's first had of cancer. Patient has 4 adult children, Laurel, an OT who lives in [place], will be arriving tomorrow. Spouse explains that patient has experienced a slow and steady decline, both physically and cognitively, over the last few years. They have a sit to stand and rc lift at home, Cheryl provides full care to include dressing, bathing (often sponge/bed bath), meal prep, feeding, and chores/errands. Patient has had [facility] in the past, has also been to [facility] for a short time. Re:stay at [facility], spouse explains she had worked at [facility] and liked the facility very much, but had noticed quickly after patient's stay he was declining quickly, required 2 person assist and would not eat. Cheryl brought patient back home and states I couldn't believe it, he was walking in the first few weeks! (w/walker). Cheryl plans to bring patient back home upon DC. She has hx using [facility] for in home cgs but plans to contact her friend/cg Lois, who has also worked at [facility], to assist in getting patient back home. This MOBILE UI DESIGNER reviewed DNR status w/spouse and discussed goals of care, briefly, inquiring if spouse was interested in Hospice Info Visit? Cheryl appreciative for the suggestion and feels if patient qualifies this would be a welcomed service in order to continue to care for patient at home. faxed referral to [facility] as requested, included spouse Cheryl's contact P#[phone]. Following closely for coordination of safe DCP. PT/OT have seen and patient only able to take a few steps then needed to sit. Spouse still intends to take patient home but patient will likely be mostly bed bound. Spouse will need to hire additional help at home for this to be a sustainable plan. MARCIAL Stevens Discharge Planning/Care Management CM Discharge Assessment Start: 09/24/19 13:13 Freq: Status: Active Protocol: Document 09/24/19 13:13 HOLLI (Rec: 09/24/19 13:30 HOLLI [id number]) Discharge Planning Assessment Assigned Chemicals Distiller MARCIAL Hester DPOA/Assigned Designee Name geni Barriga Contact Information [phone] Advance Directives? Yes History Provided By Significant Other Prior Living Arrangements House Household Members spouse Type of transporation used prior to Relies on Others admit Willing to Return to Facility? No Independent with ADL's No Is patient alert and oriented? No Needs Assistance With Bathing,Eating,Grooming,Meal Prep,Toileting,Managing Medications,Home Chores / Shopping Comment Total care Barriers to Discharge Yes Discharge Plan Home Transportation Arrangement Family Referrals Initiated Other Additional Comment Hospice
--- NOTE | 2019-09-24 13:46 | ST.IPCSEOM ---
Visit Care Team Role Provider Type Christo Woodson MD Family Provider Physician Primary Care Provider Specialty: Internal Medicine Address: [address] [place] [address], [id number] Email: [email or web address] Burden Emergency Provider Advanced Expedition Supervisor Referring Provider Specialty: EM Address: [address] [place] [address], [id number] Email: Gagandeep Sánchez MD Admit Provider Physician Attending Provider Specialty: Medical Address: [address] [place] [address], [id number] Email: [email or web address] 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) Past Medical History (Last Updated 09/23/19 @ 21:04 by Gagandeep Sánchez MD) BPH (benign prostatic hyperplasia) (Acute Medical) Dementia in Parkinson's disease (Acute Medical) Falls frequently (Acute Medical) Hypertension (Acute Medical) Parkinson disease (Acute Medical) Speech-Language Pathology Swallow Evaluation HIGH WORKER Clinical Swallow Evaluation Start: 09/24/19 12:11 Freq: Status: Active Protocol: Document 09/24/19 12:20 LL (Rec: 09/24/19 12:51 LL [id number]) Clinical Swallow Evaluation Session Time Visit Start Time 10:30 Visit Stop Time 11:45 Total Visit Minutes 75 Referral Referring Physician Manuel Sánchez MD Reason for Referral Acute intraventricular hemorrhage Setting Assessment Location Acute Care Visit Type Note Type Initial Evaluation Next Note Type Next Note Type Treatment Note Patient Information Identification Type Name,ID Wristband History Per H &P report: Cosme is an 83-year-old male with Parkinson's dementia who lives at home with his . This morning when she went to get him up for breakfast he was too weak to move and so she fed him in bed and watched him for several hours until bringing him in to be evaluated because his weakness was not improving. A brain CT shows an acute intraventricular hemorrhage with large amount of hemorrhage in the right lateral ventricle and small amount of hemorrhage in the left lateral ventricle. This is new compared to his CT scan from 1 week ago. He had presented 1 week ago with a fall and laceration to the left eyebrow. He did not have this weakness then and was doing well as recently as last evening. His bleed appears to have occurred overnight. He has no history of a stroke but does have advanced Parkinson? s disease with related Dementia. Tt's not clear why he is not on the usual Parkinson?s medications. His appears to be very caring and a good caregiver but language barriers appear to be a factor. He has had no fevers, vomiting, hematuria or extremity injuries. Despite his frequent falls his most recent fall was one week ago. He has a hospital bed at home so spends a lot of time in bed . His CXR, CBC, BMP and UA are all normal except for a BS of 154. He has no history of diabetes. His declined transfer for neurosurgical evaluation but wishes him to be treated conservatively here . Medical History List: BPH (benign prostatic hyperplasia) (Acute) Dementia in Parkinson's disease (Acute) Falls frequently (Acute) Hypertension (Acute) Parkinson?s disease (Acute) Subjective Observations Patient was sitting up in bed awake, alert, and agreeable for ST evaluation. Patient's and primary caregiver, Cheryl was present throughout entire session. Patient's social media analyst was also present for half of the session. HIGH WORKER spoke to patient' s to obtain additional medical history information, previous therapy services, and treatment goals (e.g., between OT, ST, and PT). reported that patient's cognition is at baseline and continues to gradually worsen. Patient received home health speech therapy, but his was unable to recall when and what kind of speech therapy treatment he received. expressed that she wanted this HIGH WORKER to assess patient?s swallow function due to history of GERD and swallowing difficulty likely due to the progression of Parkinson?s disease and dementia/Alzheimer ?s disease. reported that patient throat clears and coughs when he eats too fast. fully assists her with his ADLS/IADLS, including feeding. reported that patient currently consumes mechanical soft textures and thin liquids at home. reported that she works as a caregiver at [facility] [employer] assisted living facility / memory care unit and has proper training/skills to take care of her at home. Per patient?s report, patient was at a memory care unit for some period of time and returned home after his realized her ?s health was quickly declining. also reported that she would like for her to receive home health therapy services because he does better at home and is familiar/comfortable with the house layout. Evaluation Liquids Trialed Ice Chips,Thin Solids Trialed Puree,Dysphagia Mechanical, Mechanical Soft Administration Type Tea Spoon,Cup Single Sip, Controlled Cup Sip,Straw, Dependent Feeding Oral Impairment Moderately Impaired Oral Strategies Upright at 90 degrees, Controlled Bite/Sip Size, Alternate Liquids/Solids, Dementia Strategies Oral Phase Comments Oral Peripheral Exam: Flat affect likely due to dx of Parkinson's disease Generalized weakness. Slow and moderately impaired lingual/ labial ROM/strength/ coordination. Mild left side labial droop, mild right side lingual deviation, and moderate lingual tremor. Patient wears upper dentures and has natural bottom dentition. Hyolaryngeal elevation and anterior excursion WNL via palpation. Oral Phase: Appropriate oral acceptance with no anterior bolus loss. Slowed mastication , bolus prep, and a/p propulsion. No abnormal oral residue was observed. O2 sats remained 97-99 throughout all PO trials. Pharyngeal Impairment WFL Pharyngeal Strategies Sitting Upright (90 deg),Small Bites and Sips,Alternate Liquids/Solids Pharyngeal Phase Comments The patient exhibited 2 short episodes of dry coughing before and after the swallow evaluation. No throat clearing and/or wet coughing was observed during the swallow evaluation. Patient consumed all diet textures and thin liquid (ice water) without any overt s/sx of aspiration observed by this HIGH WORKER. O2 sats remained 97-99 throughout all PO trials. Findings Dysphagia Type Mild-moderate oral phase dysphagia Rehabilitation Potential Fair Impressions Patient presents with mild- moderate oral phase dysphagia likely secondary to generalized weakness, dx of Parkinson's disease, and dx of Alzheimer's disease / dementia. Patient tolerated thin liquid from cup and straw and all solid trials with no overt s/sx of aspiration. Reviewed findings and explained ST POC with patient, /caregiver, and social media analyst. HIGH WORKER provided patient's with two simple communication boards to use as needed (e.g., reported that patient is no longer able to say that he needs to use the restroom). HIGH WORKER also provided education about performing oral care to maintain adequate oral hygiene . reported that she performs oral care on her several times per day. In regards to the patient's cognitive status, his reported that his cognition is at baseline and continues to gradually worsen. 's main concern is swallowing. Patient will receive dysphagia treatment with focus on patient and /caregiver education and training of compensatory swallow / feeding strategies. A cognitive evaluation may be completed if changes in cognition are observed and if a cognitive evaluation is warranted. Diet Recommendations Liquids Order Thin Diet Order Mechanical Soft Medication Recommendations As Tolerated Comments Mech soft with extra sauce and gravy Additional Dietary Needs Chopped Food,Single Sips, Controlled Sips,1:1 Assistance Aspiration Precautions Recommended Precautions Upright at 90 Degrees, Alternate Liquids/Solids,Small Bites/Sips,Check for Pocketing Treatment Plan Placement Recommendations after Home with Home Health Discharge Appropriate for Therapy Yes Therapy Recommendations Ongoing assessment with toleration of diet as appropriate. Ongoing pt/family education and training of compensatory swallowing / feeding strategies. Will follow up x 1-2 for ongoing assessment and patient /caregiver education. Dysphagia Goals 1. The patient will tolerate least restrictive diet to meet his nutrition and hydration needs. 2. The patient and/or caregiver will perform safe swallow and feeding strategies .
--- NOTE | 2019-09-24 14:52 | PM.PN.1 ---
Subjective Subjective Date Patient Seen: 09/24/19 Interval history: Patient is an 83-year-old male who was admitted to the hospital for altered mental status. The patient fell about 1 week ago. He suffered a laceration of the left brow. Patient was brought in a to the hospital by his because he was less responsive. Today he is awake and alert and is at his baseline. He does have a history of Parkinson's disease. Patient got up from bed with physical therapy and occupational therapy. He has no specific complaints Exam Vital Signs (past 8 hours): - 09/24/19 07:15 09/24/19 08:38 Temperature 97.9 F Pulse Rate 68 Respiratory Rate 18 Blood Pressure 152/70 H 152/70 H Pulse Oximetry 96 Oxygen Delivery Method Room Air Oxygen Flow Rate 0 Narrative Exam Narrative: HEENT: Normocephalic bruising, ecchymoses over the left eye and forehead. There is a well-healed laceration over the left eye Lungs: Clear to auscultation Cardiac exam regular rate and rhythm normal S1-S2 Abdomen: Soft nontender nondistended Extremities: No edema Objective Labs Result Diagrams: 09/24/19 05:25 09/24/19 05:25 Labs: Laboratory Results - last 24 hr 09/23/19 09/23/19 09/23/19 17:04 17:37 17:37 WBC 5.4 RBC 3.96 L Hgb 13.0 L Hct 36.2 L MCV 91.4 MCH 32.9 MCHC 36.0 RDW 14.1 Plt Count 178 Neut % (Auto) 60.1 Lymph % (Auto) 24.3 L Zapata % (Auto) 7.3 Eos % (Auto) 7.6 H Baso % (Auto) 0.7 Neut # (Auto) 3200 Lymph # (Auto) 1300 Zapata # (Auto) 400 Eos # (Auto) 400 Baso # (Auto) 0 PT 13.0 H INR 1.1 APTT 32 Sodium Potassium Chloride Carbon Dioxide BUN Creatinine Estimated GFR BUN/Creatinine Ratio Glucose Hemoglobin A1c Lactate Calcium Total Bilirubin AST ALT Alkaline Phosphatase Total Creatine Kinase 46 L CK-MB (CK-2) TNP CK-MB (CK-2) Rel Index TNP Troponin I 0.018 Total Protein Albumin Globulin Albumin/Globulin Ratio Urine Color Urine Appearance Urine pH Ur Specific Bishop Urine Protein Urine Glucose (UA) Urine Ketones Urine Occult Blood Urine Nitrate Urine Bilirubin Urine Urobilinogen Ur Leukocyte Esterase Urine RBC Urine WBC Urine Bacteria Ur Culture Indicated? 09/23/19 09/23/19 09/23/19 17:37 17:37 19:56 WBC RBC Hgb Hct MCV MCH MCHC RDW Plt Count Neut % (Auto) Lymph % (Auto) Zapata % (Auto) Eos % (Auto) Baso % (Auto) Neut # (Auto) Lymph # (Auto) Zapata # (Auto) Eos # (Auto) Baso # (Auto) PT INR APTT Sodium 139 Potassium 4.0 Chloride 101 Carbon Dioxide 32 BUN 13 Creatinine 0.94 Estimated GFR > 60.0 BUN/Creatinine Ratio 13.8 Glucose 154 H Hemoglobin A1c Lactate 1.9 Calcium 9.3 Total Bilirubin 1.4 H AST 33 ALT 30 Alkaline Phosphatase 54 Total Creatine Kinase CK-MB (CK-2) CK-MB (CK-2) Rel Index Troponin I Total Protein 7.4 Albumin 4.3 Globulin 3.1 Albumin/Globulin Ratio 1.4 Urine Color Yellow Urine Appearance Clear Urine pH 6.5 Ur Specific Bishop 1.015 Urine Protein Negative Urine Glucose (UA) Negative Urine Ketones Negative Urine Occult Blood Negative Urine Nitrate Negative Urine Bilirubin Negative Urine Urobilinogen 1.0 Ur Leukocyte Esterase Negative Urine RBC None seen Urine WBC 0-1/hpf Urine Bacteria None seen Ur Culture Indicated? Cult not indicated 09/24/19 09/24/19 09/24/19 05:25 05:25 05:25 WBC 5.7 RBC 3.66 L Hgb 12.0 L Hct 33.7 L MCV 91.9 MCH 32.8 MCHC 35.7 RDW 14.3 Plt Count 161 Neut % (Auto) 58.4 Lymph % (Auto) 24.5 L Zapata % (Auto) 7.6 Eos % (Auto) 8.9 H Baso % (Auto) 0.6 Neut # (Auto) 3300 Lymph # (Auto) 1400 Zapata # (Auto) 400 Eos # (Auto) 500 H Baso # (Auto) 0 PT INR APTT Sodium 139 Potassium 3.3 L Chloride 106 Carbon Dioxide 27 BUN 10 Creatinine 0.73 Estimated GFR > 60.0 BUN/Creatinine Ratio 13.7 Glucose 124 H Hemoglobin A1c 6.7 H Lactate Calcium 8.5 Total Bilirubin AST ALT Alkaline Phosphatase Total Creatine Kinase CK-MB (CK-2) CK-MB (CK-2) Rel Index Troponin I Total Protein Albumin Globulin Albumin/Globulin Ratio Urine Color Urine Appearance Urine pH Ur Specific Bishop Urine Protein Urine Glucose (UA) Urine Ketones Urine Occult Blood Urine Nitrate Urine Bilirubin Urine Urobilinogen Ur Leukocyte Esterase Urine RBC Urine WBC Urine Bacteria Ur Culture Indicated? Assessment & Plan Assessment & Plan narrative: Acute intraventricular hemorrhage with large amount of hemorrhage in the right lateral ventricle and small amount of hemorrhage in the left lateral ventricle. This is new compared to his CT scan from 1 week ago -patient's , [place] is agreeable to hospice -patient is off Plavix and aspirin at this time -will continue to manage him closely Parkinsons Dementia, present on admission, chronic - Continue Donepezil and Seroquel Parkinsons, present on admission, chronic - Continue Donepezil, continue Sinemet - PT, OT and Speech therapy Hypertension, present on admission, chronic - Admit BP 164/72 - Continue Metoprolol Hyperglycemia, present on admission, acute - Blood Sugar 154, follow accuchecks and check A1C - Admit med of Metformin suggests a prior diagnosis of DM 2 Hyperlipidemia, present on admission, chronic - Continue Lipitor BPH, present on admission, chronic - Continue Flomax Frequent Falls, present on admission, acute - PT and OT consults ordered Home with hospice in 1-2 day Quality VTE Deep Vein Thrombosis/Pulmonary Embolism Present on Admission: No
[2019-09-24] MEDS: POTASSIUM CHLORIDE 20 MEQ/15 ML UDC 40 MEQ PO (17:06)
[2019-09-24] MEDS: ATORVASTATIN 20 MG TABLET PO (21:39)
[2019-09-24] MEDS: DONEPEZIL 5 MG TABLET 10 MG PO (21:40)
[2019-09-24] MEDS: QUETIAPINE 25 MG TABLET 50 MG PO (21:41)
[2019-09-24] MEDS: TAMSULOSIN 0.4 MG CAPSULE PO (21:41)
[2019-09-25] VITALS (9 sets, daily range): BP systolic 131–158; BP diastolic 60–82; PULSE 69–79; RESP 16–20; TEMP 36.2–36.8; O2SAT 94–99
--- NOTE | 2019-09-25 10:17 | PC.NURSE ---
Day shift: Pt has been sleeping comfortably. He does awake to voice and touch. His communication has been in Slovenian per his spouse. Pt has no s/s of pain or discomfort. Gets frustrated and very restless w/ brief changes. Pts spouse has been at bedside for support and is active in his care. Pt may d/c home today and have a hospice nurse practitioner come in next week. 'Pts AM meds not given as Pt has been asleep and not awake enough to give them in a safe way. Pt's spouse will let this automobile and property underwriter know when Pt wakes up and is eating.
[2019-09-25] MEDS: SODIUM CHLORIDE 0.9% FLUSH 10 ML IV ×2 (10:24→20:39)
[2019-09-25] MEDS: CARBIDOPA-LEVODOPA 25/100 TABLET 1 EACH PO ×3 (11:22→20:36)
[2019-09-25] MEDS: FAMOTIDINE 20 MG TABLET PO ×2 (11:22→20:36)
[2019-09-25] MEDS: METOPROLOL ER 25 MG TABLET PO ×2 (11:23→20:36)
--- NOTE | 2019-09-25 11:26 | PM.PN.1 ---
Subjective Subjective Date Patient Seen: 09/25/19 Time Patient Seen: 11:27 Interval history: He is seen today, along with his , to follow-up the intraventricular hemorrhage, Parkinson's dementia and hospice planning. He continues to be quite weak, sedated, sleeping without much participation in therapy, eating, Nursing tasks etc.. He is pending a hospice visit today and transition back to home on hospice tomorrow. Exam Vital Signs (past 8 hours): - 09/25/19 04:00 09/25/19 09:05 Temperature 97.4 F L 97.4 F L Pulse Rate 69 78 Respiratory Rate 16 16 Blood Pressure 142/67 H 146/65 H Pulse Oximetry 95 94 Oxygen Delivery Method Room Air Oxygen Flow Rate 0 Narrative Exam Narrative: He is asleep, not responding to my attempts to engage. No apparent distress The bruising around the left upper eyebrow laceration is improved compared to when I saw him 2-3 days ago. Heart is regular rate and rhythm without murmur Lungs are clear to auscultation bilaterally Abdomen is soft, nontender, no organomegaly Extremities have no ankle edema Objective Labs Result Diagrams: 09/24/19 05:25 09/24/19 05:25 Assessment & Plan Assessment & Plan narrative: Intraventricular Bleed -Acute intraventricular hemorrhage with large amount of hemorrhage in the right lateral ventricle and small amount of hemorrhage in the left lateral ventricle. This is new compared to his CT scan from 1 week ago -patient's , DPOA is agreeable to hospice -patient is off Plavix and aspirin at this time -transition to home on hospice when family and caregivers are present 6/6 Parkinsons Dementia, present on admission, chronic - Continue Donepezil and Seroquel Parkinsons, present on admission, chronic - Continue Donepezil, continue Sinemet - PT, OT and Speech therapy were tried but have not been helpful Hypertension, present on admission, chronic - Admit BP was 164/72 - Continue Metoprolol Type 2 Diabetes Mellitus, present on admission, acute - Blood Sugar 154 with A1C 6.7 on admission - stopping Metformin and blood sugar checks with transition to hospice care 6/ Hyperlipidemia, present on admission, chronic - Stopping Lipitor 6/5 BPH, present on admission, chronic - Continue Flomax Frequent Falls, present on admission, acute - PT and OT have not been able to engage due to his profound sedation related to the [facility] Home with hospice and caregivers 09/25. Quality VTE Deep Vein Thrombosis/Pulmonary Embolism Present on Admission: No
--- NOTE | 2019-09-25 11:31 | PC.NURSE ---
Day shift: Pt did very well taking his PO meds. Took w/ applesauce. No coughing at that time. He also ate all of his breakfast.
--- NOTE | 2019-09-25 11:46 | PT.IPTN ---
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) Physical Therapy Treatment Note M2 PT-IP Current Condition Start: 09/24/19 13:46 Freq: NEEDED Status: Active Protocol: Document 09/24/19 11:42 AB (Rec: 09/24/19 14:05 AB [id number]) Physical Therapy Current Condition Current Condition Evaluation Date 09/24/19 Treatment Diagnosis intraventricular hemorrhage; PD; difficulty in walking Onset Date 09/23/19 Precautions Other Precautions falls M3 PT-IP Subjective Start: 09/24/19 13:46 Freq: NEEDED Status: Active Protocol: Document 09/25/19 11:46 AB (Rec: 09/25/19 12:55 AB [id number]) Subjective Physical Therapy Visit Type Type Treatment Note Visit Start Time 11:46 Visit Stop Time 12:10 Total Visit Minutes 24 Number of SUPERINTENDENT STEVEDORING Visits 0 Physical Therapy Visit Comments Patient Comments spouse in room with pt M4 PT-IP Mobility and Gait Start: 09/24/19 13:46 Freq: NEEDED Status: Active Protocol: Document 09/25/19 11:46 AB (Rec: 09/25/19 12:55 AB [id number]) PT-Bed Mobility Assessment Supine to Sit Supine to Sit Maximum Assistance,1 Person Assistance,2 Person Assistance ,Head of Bed Elevated Scooting Scooting to Edge of Bed Dependent PT-Transfer Assessment Sit to and From Stand Sit to and from Stand Maximum Assistance,2 Person Assistance,Use of Upper Extremities Equipment Transfer Assistive Device Gait Belt,Front Wheeled Walker Orthotic/Prosthetic Devices or Brace: No Transfers Transfer Destination Chair Transfer Technique Stand Step Pivot Transfer Ability Level of Assist Maximum Assistance,2 Person Assistance,Use of Upper Extremities Comments Mobility Comments completed supine to sit with HOB elevated max A x 1-2 and max cues. pt was able to sit on EOB with initial max A with increase posterior trunk lean but with min A after postiioning. completed sit to stand max A x 2 and max cues and pt was able to transfer to chair using FWW max A x 2 and max cues. requires cues for upright posture and for LE movement. requires assist with weight shifting. pt completed sit to stand from chair max A x 2 and max cues and was able to ambulate ~ 3 ft using FWW max A x 2 and max cues with chair follow. pt needs to be cleaned up and change his brief. Asked nurse to assist. pt completed sit to stand max A x 2 and max cues and was able to maintain standing mod A x 2 and max cues for upright posture while nurse assist with hygiene care and brief change. pt required max Ax 2 for controlled descent to chair. positioned pt on chair. call light and table placed within reach. Left pt with spouse. Gait Assessment Gait Gait Assistance Required: Maximum Assistance,2 Person Assist Distance (Feet) 3 Able to Maintain Weight Bearing Status Yes During Gait Assistive Devices Assistive Device Gait Belt,Front Wheeled Walker Orthotic/Prosthetic Devices or Brace: No Gait Deviations General Gait Pattern Ataxic,Decreased Stride Length ,Decreased Feet Clearance, Flexed Trunk,Lateral Trunk Lean,Narrow Based Gait,Step-to Gait Factors Limiting Gait Function Factors Limiting Gait Function Decreased Activity Tolerance, Decreased Strength,Difficulty Following Directions,Limited Range of Motion,Pain,Poor Balance,Poor Safety Awareness M5 PT-IP Objective Assessments Start: 09/24/19 13:46 Freq: NEEDED Status: Active Protocol: Document 09/24/19 11:42 AB (Rec: 09/24/19 14:05 AB [id number]) Orientation Orientation/Cognition Level of Alertness Confusional State Safety Awareness Decreased Safety Awareness Memory Description Short Term Impaired,Hearing Healthcare Practitioner Impaired Gross Range of Motion Lower Extremity ROM Assessment Within Functional Limits Strength Lower Extremity Strength Assessment Within Functional Limits Comments Strength Comments requires cues and assist with initiation to move BLE Muscle Tone Muscle Tone WNL No Muscle Tone Location Bilateral Lower Extremity Type of Tone Hypertonicity,Rigidity Severity of Tone Moderate Comments Muscle Tone Comments also increase trunk rigidity during mobility with (+) freezing episodes M6 PT-IP Treatment Start: 09/24/19 13:46 Freq: NEEDED Status: Active Protocol: Document 09/25/19 11:46 AB (Rec: 09/25/19 12:55 AB [id number]) Physical Therapy Treatment Education Education Provided Safety M7 PT-IP Assessment and Plan Start: 09/24/19 13:46 Freq: NEEDED Status: Active Protocol: Document 09/25/19 11:46 AB (Rec: 09/25/19 12:55 AB [id number]) PT Summary Assessment and Plan Potential Rehabilitation Potential Fair Summary Impairments Pain,ROM,Strength,Balance, Coordination,Sensation,Tone, Cognition,Bed Mobility, Transfers,Gait,Activity Tolerance Progress Towards Goals Slow Progress due to Medical Issues Assessment Summary pt continues to require max A x 2 with all tasks and max cues. Informed spouse yesterday that she will need more assistance to take care of pt at home and spouse agreed to hire more help. Currently, spouse stated that pt's daughter wants pt to just go to SNF. informed case technician. Goals Bed Mobility Goal Moderate Assistance Transfer Goal Moderate Assistance,Front Wheeled Walker Gait Goal Moderate Assistance,Front Wheel Walker Gait Distance 25 Days to Meet Goals 10 Frequency of Treatment Frequency Of Treatment Once a Day Treatment Plan Physical Therapy Treatment Plan Bed Mobility Training,Transfer Training,Gait Training, Therapeutic Exercise,Balance Retraining,Discharge Planning, Neuromuscular Re-ed, Coordination Retraining,Manual Therapy Other Recommendations and Next Treatment transfers, ambulation, Focus caregiver training Recommendations To Nursing Amount of Assist Needed Mechanical Lift Discharge Recommendations PT Discharge Recommendations Home with 12/11 Assist,Home Health,SNF Rehab Transportation Needs at Discharge Wheelchair/Cabulance,Stretcher /Ambulance
--- NOTE | 2019-09-25 12:14 | OT.IP.TRT ---
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) Occupational Therapy Treatment Note M2 OT-IP Current Condition Start: 09/24/19 13:05 Freq: Status: Active Protocol: Document 09/24/19 13:05 [facility] (Rec: 09/24/19 13:33 [facility] [email or web address]) Occupational Therapy Current Condition Current Condition Evaluation Date 09/24/19 Treatment Diagnosis Acute hemorrhage occipital temporal horns of right lateral ventricle Weight Bearing Status Weight Bearing Status Weight Bear as Tolerated M3 OT- IP Subjective and Pain Start: 09/24/19 13:05 Freq: Status: Active Protocol: Document 09/25/19 13:20 [facility] (Rec: 09/25/19 13:28 [facility] [id number]) OT- Subjective Occupational Therapy Visit Type Type Treatment Note Visit Start Time 11:47 Visit Stop Time 12:14 Total Visit Minutes 27 Occupational Therapy Visit Comments Patient Comments Pt agreed to get up and PT, OT and present for the session. Patient/Caregiver Goals Pt's states her daughter called her to insist that the pt not go home and would be better going to half-way. M4 OT- IP ADL's Start: 09/24/19 13:05 Freq: Status: Active Protocol: Document 09/25/19 13:20 [facility] (Rec: 09/25/19 13:28 [facility] [id number]) OT RSS-Kevn-Leawgnc Comments OT Self-Feeding Comments Pt's assist pt for self feeding. OT ADL-Grooming Comments OT Grooming Comments Not performed. OT ADL-Dressing General Eval Lower Body Dressing Ability Total Assistance Areas Needing Assistance Underpants/Brief,Socks OT ADL-Toileting General Evaluation Toileting Ability Total Assistance Comments OT Toileting Comments MAX AX 2 to stand to FWW and nurse able to help clean and put on a clean brief. Pt's also standing in front of his to reassure pt what was going on and encouraging him to stand longer. M5 OT- IP IADL's Start: 09/24/19 13:05 Freq: Status: Active Protocol: Document 09/24/19 13:05 [facility] (Rec: 09/24/19 13:33 [facility] [email or web address]) OT-Instrumental Activities of Daily Living Deficits IADL Deficits Identified Deficits Home Safety Awareness Awareness of Need for Assistance at Home Decreased Awareness Ability to Problem Solve Emergency Unable to Problem Solve Situations Home Safety Comments Pt is dependent on his for IADL needs. M6 OT- IP Functional Cognition Start: 09/24/19 13:05 Freq: Status: Active Protocol: Document 09/25/19 13:20 [facility] (Rec: 09/25/19 13:28 [facility] [id number]) Cognitive Factors Limiting Selfcare Function Cognitive Ability Level of Alertness Alert,Confusional State Patient Orientation Name Attention Span Ability Unable to Focus,Unable to Sustain Attention Ability to Follow Commands Able to Follow One Step Commands with Increased Time, Able to Follow One Step Commands with Repetition Memory Description Immediate Impaired,Short Term Impaired,Electronics Specialist Impaired, Working Impaired Safety Awareness Underestimates Need for Assistance Problem Solving Ability Unable to Identify Errors, Needs Assist to Identify Solutions M7 OT- IP Mobility and Balance Start: 09/24/19 13:05 Freq: Status: Active Protocol: Document 09/25/19 13:20 [facility] (Rec: 09/25/19 13:28 [facility] [id number]) OT- Bed Mobility Assessment Supine to Sit Supine to Sit Assist Maximum Assistance,1 Person Assistance,2 Person Assistance OT-Transfer Assessment Sit to and From Stand Sit to and from Stand Maximum Assistance,2 Person Assistance Transfers Transfer Ability Maximum Assistance,2 Person Assistance Technique Transfer Destination Bed,Chair Transfer Technique Stand Step Pivot Devices Transfer Assistive Devices Gait Belt,Front Wheeled Walker Comments Mobility Comments Pt able to assist a little more for mobility needs and iniating getting his legs on the bed more. Still needing extensive assist to get upright and to the edge of the bed, Pt needing from VALERIY to MODA for sitting balance. MAX X 2 with FWW , assist from weight shifting, tactile cues to advance his legs, assist to move the FWW and assist for balance. OT- Balance Assessment Sitting Balance and Reactions Static Sitting Balance Ability Poor Dynamic Sitting Balance Ability Poor Standing Balance and Reactions Static Standing Balance Ability Poor Dynamic Standing Balance Ability Poor M8 OT- IP Objective Assessments Start: 09/24/19 13:05 Freq: Status: Active Protocol: Document 09/24/19 13:05 [facility] (Rec: 09/24/19 13:33 [facility] [email or web address]) OT-Muscle Tone Assessment Muscle Tone WNL No Comments Muscle Tone Comments Hypertonicity. M9 OT- IP Assessment and Plan Start: 09/24/19 13:05 Freq: Status: Active Protocol: Document 09/25/19 13:20 [facility] (Rec: 09/25/19 13:28 [facility] [email or web address]) OT Summary Assessment and Plan Potential Rehabilitation Potential Fair Analytic Complexity at Evaluation Moderate Summary OT Impairments Functional Mobility,Dressing, Toileting,Bathing,Activity Tolerance Progress Towards Goals Slow Progress due to Medical Issues,Slow Progress due to Activity Tolerance,Slow Progress due to Cognition Assessment Summary Pt now not wanting to take pt home and feels too much for her to handle and not been able to contact caregiver to giev her more assist. Pt is an extensive two person assist for mobility and ADl needs. Pt's now wanting pt to go to skilled rehab prior to going home. Goals Self-Feeding Goal Moderate Assistance Grooming Goal Moderate Assistance Toilet Transfer Goal Moderate Assistance Patient/Caregiver Education Goal Caregiver Independent Assisting Patient Days to Meet Goals 15 Frequency of Treatment Frequency Of Treatment Once a Day Treatment Plan OT Treatment Plan ADL Training,Functional Mobility,Patient/Family Education Discharge Recommendations OT Discharge Recommendations Home with 12/11 Assist,Home Health,SNF Rehab Transportation Needs at Discharge Wheelchair/Cabulance
--- NOTE | 2019-09-25 13:09 | ST.IPDYTX ---
Visit Care Team Role Provider Type Christo Woodson MD Family Provider Physician Primary Care Provider Specialty: Internal Medicine Address: [address] [place] [address], [id number] Email: [email or web address] Emergency Provider Advanced Profiling Machine Set Up Operator Referring Provider Specialty: EM Address: [address] [place] [address], [id number] Email: Gagandeep Sánchez MD Admit Provider Physician Attending Provider Specialty: Medical Address: [address] [place] [address], [phone] Email: [email or web address] [email or web address] Dysphagia Treatment MUSIC SUPERVISOR Dysphagia Treatment Start: 09/24/19 12:11 Freq: Status: Active Protocol: Document 09/25/19 12:36 [facility] (Rec: 09/25/19 13:03 [facility] [email or web address]) Dysphagia Treatment Session Time Visit Start Time 12:15 Visit Stop Time 12:32 Total Visit Minutes 17 Setting Assessment Location Acute Care Visit Type Note Type Treatment Note Next Note Type Next Note Type Treatment Note Patient Information Identification Type Name,ID Wristband Subjective Observations Patient was awake, alert, and sitting upright in chair eating lunch with his upon ST arrival. Patient and agreeable to receive ST services. Treatment Liquids Trialed Thin Solids Trialed Mechanical Soft Administration Type Tea Spoon,Straw,Dependent Feeding Oral Strategies Upright at 90 degrees, Toothette,Controlled Bite/Sip Size,Alternate Liquids/Solids, Dementia Strategies Pharyngeal Strategies Sitting Upright (90 deg),Small Bites and Sips,Alternate Liquids/Solids Additional Dysphagia Treatment Oral care after meals Strategies Treatment Activities MUSIC SUPERVISOR provided education/ training with on recommended compensatory swallow / feeding strategies to ensure patient safely consumes least restrictive diet. Limited engagement and speech production from patient likely due to altered mental status (e.g., dementia/ Alzheimer's, Parkinson's disease - moderate to severe). As stated in initial swallow evaluation, patient's assists him with all ADLS/ IADLS. demonstrated adequate use of swallowing / feeding strategies provided by MUSIC SUPERVISOR (e.g., small bites/sips, sitting upright as possible, slow feeding rate, dementia strategies). required minimal to no cues to implement proper feeding / swallowing strategies while feeding . Patient attempted to self-fed x 2, however, unable to coordinate bringing cup up to lips to take a small sip of water. Patient consumed clam chowder with moisten crackers, peaches , applesauce, and thin water by straw with no overt s/sx of aspiration noted. Patient's O2 sats remained 97-99 throughout PO trials. Reviewed oral care strategies for to perform on patient after every meal to maintain adequate oral hygiene. verbalized understanding and agreement with all strategies trained during today's session . Assessment Patient Response to Treatment Fair Rehab Potential Fair Assessment of Improvement Nursing reported no difficulty with taking medications ( whole with carrier), however, nursing and reported that patient chews up medications before swallowing. Patient continues to have an adequate appetite. Patient is safely consuming mechanical soft textures and thin liquids with no overt s/sx of aspiration. Spoke with nursing, additional therapists, and to determine patient's discharge plans. Initially patient was going to return home with home health and/or hospice, but has recently decided to request transfer to SNF ([facility] [place]). Diet Recommendations Recommendations Continue Current Diet Liquids Order Thin Diet Order Mechanical Soft Medication Recommendations As Tolerated Additional Dietary Needs Chopped Food,Single Sips, Controlled Sips,1:1 Assistance ,Encourage to Self-Feed Aspiration Precautions Recommended Precautions Upright at 90 Degrees, Alternate Liquids/Solids,Small Bites/Sips,Check for Pocketing Treatment Plan Placement Recommendation after Discharge Long Term Facility,Home with Home Health,Home with Hospice Appropriate for Continued Therapy Yes Therapy Recommendations Continue to monitor patient's toleration of diet throughout hospital stay. Patient planned to discharge on 09/25. Dysphagia Goals 1. The patient will tolerate least restrictive diet to meet his nutrition and hydration needs. - mechanical soft textures with extra sauce/ gravy and thin liquids 2. The patient and/or caregiver will perform safe swallow and feeding strategies . - performed safe swallow and feeding strategies given minimal to no cues.
--- NOTE | 2019-09-25 15:58 | CM.DPNOTE ---
DCP Cont This morning, had lengthy conversation w/spouse to review DCP. Cheryl explained patient's dtr Laurel would arrive from [place] this evening and friend/cg Lois could likely help tomorrow. Info Visit by [facility] happening today. Cheryl felt this AM that because she had hospital bed and other safety DME, friends/family available and Hospice f/u early next week (according to kylie at [facility]) she could take patient home tomorrow via BLS. This afternoon, DC plans shifted, spouse Cheryl explains dtr Laurel will not be coming over from [place] this weekend and cg/friend Lois not available to assist, spouse is not comfortable taking patient home w/o assist and states patient needs facility placement. Spouse placed call to Vilma at [facility] and they do not have space available for patient at this time. Cheryl requests [facility] be contacted because dtr Laurel, OT works at their sister facility in [place], this HARPOON ENGAGEMENT PLANNING OPERATOR suggests b/u SNF choice and spouse requests local facility [facility]. Contacted both Orin at [facility] and Natty at [facility], discussed referral. Both facilities still reviewing at 1615. DCP team will need to follow closely and contact SNF options tomorrow AM, spouse staying at bedside, appreciative of DCP efforts, requests update when available. PASRR still needed. Ellen Bates, HARPOON ENGAGEMENT PLANNING OPERATOR
[2019-09-25 20:00] LABS: COVID19 -Nasal RAPID Negative (Negative)
[2019-09-25] MEDS: DONEPEZIL 5 MG TABLET 10 MG PO (20:35)
[2019-09-25] MEDS: QUETIAPINE 25 MG TABLET 50 MG PO (20:36)
[2019-09-25] MEDS: TAMSULOSIN 0.4 MG CAPSULE PO (20:36)
[2019-09-26 05:05] VITALS: BP 140/67; PULSE 70; RESP 18; TEMP 36.4; O2SAT 98
[2019-09-26] MEDS: FAMOTIDINE 20 MG TABLET PO (08:41)
[2019-09-26] MEDS: CARBIDOPA-LEVODOPA 25/100 TABLET 1 EACH PO (08:42)
[2019-09-26] MEDS: METOPROLOL ER 25 MG TABLET PO (08:42)
[2019-09-26] MEDS: SODIUM CHLORIDE 0.9% FLUSH 10 ML IV (08:42)
[2019-09-26 09:00] VITALS: BP 148/68; PULSE 69; RESP 18; TEMP 36.8; O2SAT 98
--- NOTE | 2019-09-26 10:34 | PM.DS.1 ---
History of Present Illness History of Present Illness Date Patient Seen: 09/26/19 Time Patient Seen: 10:34 Chief complaint: Weakness Narrative: This is an 83-year-old male with Parkinson's dementia who lives at home with his . This morning when she went to get him up for breakfast he was too weak to move and so she fed him in bed and watched him for several hours until bringing him in to be evaluated because his weakness was not improving. A brain CT shows an Acute intraventricular hemorrhage with large amount of hemorrhage in the right lateral ventricle and small amount of hemorrhage in the left lateral ventricle. This is new compared to his CT scan from 1 week ago. He had presented 1 week ago with a fall and laceration to the left eyebrow. He did not have this weakness then and was doing well as recently as last evening. His bleed appears to have occurred overnight. He has no history of a stroke but does have advanced Parkinsons Disease with related Dementia. it's not clear why he is not on the usual Parkinsons medicines. His appears to be very caring and a good caregiver but language barriers appear to be a factor. He has had no fevers, vomiting, hematuria or extremity injuries. Despite his frequent falls his most recent fall was one week ago. He has a hospital bed at home so spends a lot of time in bed. His CXR, CBC, BMP and UA are all normal except for a BS of 154. He has no history of Diabetes. His declined transfer for neurosurgical evaluation but wishes him to be treated conservatively here. Discharge Providers Provider Date of admission: 09/23/19 20:02 Discharge Date: 09/26/19 Primary care physician: Christo Woodson MD Consults: 09/23/19 20:53 Consult to Discharge Planning Routine Comment: Consult to Occupational Therapy Evaluate & Treat Comment: Physician Instructions: Evaluate and treat Consult to Physical Therapy Evaluate & Treat Comment: Physician Instructions: Evaluate and Treat Consult to Speech Therapy Evaluate & Treat Comment: Physician Instructions: Evaluate and treat Discharge provider: Gagandeep Sánchez MD Summary Hospital Course Discharge Diagnosis: Intraventricular Bleed Parkinsons Dementia Parkinsons Hypertension Type 2 Diabetes Mellitus Hyperlipidemia BPH Frequent Falls Hospital Course: Intraventricular Bleed -Acute intraventricular hemorrhage with large amount of hemorrhage in the right lateral ventricle and small amount of hemorrhage in the left lateral ventricle. This is new compared to his CT scan from 1 week ago -patient's , [place] is agreeable to hospice, but at discharge that will be delayed while he attempts some SNF rehab at [facility] first -patient will remain off Plavix and aspirin due to the bleeding -transition to home on hospice when family and caregivers are present but will go to SNF first. (change in plans since 09/24) -he remains weaker than his baseline Parkinsons debility Parkinsons Dementia, present on admission, chronic - Continue Donepezil and Seroquel. The Seroquel can be expected to make his Parkinsonism worse but his sundowning responds and his prefers to continue it. Parkinsons, present on admission, chronic - Continue Donepezil, continue Sinemet - PT, OT and Speech therapy were tried but have not been helpful here Hypertension, present on admission, chronic - Admit BP was 164/72 - Continue Metoprolol Type 2 Diabetes Mellitus, present on admission, acute - Blood Sugar 154 with A1C 6.7 on admission - stopping Metformin and blood sugar checks with transition to hospice care 09/24 - 09/25 prefers to resume Metformin Hyperlipidemia, present on admission, chronic - Stopped Lipitor 09/24 BPH, present on admission, chronic - Continue Flomax Frequent Falls, present on admission, acute - PT and OT have not been able to engage due to his profound sedation related to the IVH Exam Vital Signs (past 8 hours): - 09/26/19 05:05 09/26/19 09:00 Temperature 97.5 F L 98.2 F Pulse Rate 70 69 Respiratory Rate 18 18 Blood Pressure 140/67 148/68 H Pulse Oximetry 98 98 Oxygen Delivery Method Room Air Oxygen Flow Rate 0 Narrative Exam Narrative: He is much more alert today, almost smiling at times but still quite uncommunicative and at a subsequent visit he is back to unresponsive sleeping. No apparent distress Heart is regular rate and rhythm without murmur Lungs are clear to auscultation bilaterally Extremities have no ankle edema Neurological exam There is generalized body stiffness and masked face along with cogwheeling due to the Parkinson's. He appears to be at baseline without any new symptoms from the intraventricular bleed other than more weakness. Objective Labs Result Diagrams: 09/24/19 05:25 09/24/19 05:25 Labs: Laboratory Results - last 24 hr 09/25/19 18:10 COVID-19 PCR Negative Discharge Plan Discharge Plan Patient Disposition: SNF Transfer to: [facility] Under care of provider: Dr. Escobar Discharge comment: Was referred to hospice which his has deferred for now. Discharge orders & Medications Prescriptions: Continued donepezil [Aricept] 10 MG tablet 10 mg PO HS Qty: 0 RF: 0 nitroglycerin [Nitrostat] 0.4 MG tablet, sublingual 0.4 mg Sublingual PRN Qty: 0 RF: 0 cetirizine 10 MG tablet 10 mg PO QDAYP PRN (Reason: Allergy Symptoms) Qty: 0 RF: 0 metformin 500 mg Tablet 500 mg PO BID RF: 0 tamsulosin 0.4 mg Capsule 0.4 mg PO BEDTIME RF: 0 pantoprazole 40 mg Tablet,Delayed Release (Dr/Ec) 40 mg PO DAILY RF: 0 metoprolol succinate 25 mg Tablet Extended Release 24 Hr 25 mg PO BID RF: 0 carbidopa-levodopa 25-100 mg Tablet 1 tab PO TID RF: 0 quetiapine 50 mg Tablet 50 mg PO BEDTIME RF: 0 Discontinued aspirin 81 MG tablet,chewable 81 mg PO QDAY Qty: 0 RF: 0 atorvastatin 20 mg Tablet 20 mg PO BEDTIME RF: 0 clopidogrel [Plavix] 75 mg Tablet 75 mg PO DAILY RF: 0 Follow up/Referrals: Christo Woodson MD [Primary Care Provider] - Diet/Activity/Treatments Diet: Carb-consistent/Diabetic Liquid consistency: Normal/Thin Food texture: Soft Diet comment: Mechanical soft Special Rehabilitation Services Reason for rehabilitation: Therapy following stroke Rehab type: Physical therapy, Occupational therapy and Speech therapy Visit Report/Discharge Packet Instructions: How to Prevent Falls, DI for Stroke-Intracerebral Hemorrhage Discharge Data Primary Care Provider: Christo Woodson V Quality VTE Deep Vein Thrombosis/Pulmonary Embolism Present on Admission: No
--- NOTE | 2019-09-26 10:43 | PT.IPTN ---
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) Physical Therapy Treatment Note M2 PT-IP Current Condition Start: 09/24/19 13:46 Freq: NEEDED Status: Active Protocol: Document 09/24/19 11:42 [facility] (Rec: 09/24/19 14:05 [facility] [id number]) Physical Therapy Current Condition Current Condition Evaluation Date 09/24/19 Treatment Diagnosis intraventricular hemorrhage; PD; difficulty in walking Onset Date 09/23/19 Precautions Other Precautions falls M3 PT-IP Subjective Start: 09/24/19 13:46 Freq: NEEDED Status: Active Protocol: Document 09/26/19 10:25 [facility] (Rec: 09/26/19 11:34 [facility] [email or web address]) Subjective Physical Therapy Visit Type Type Treatment Note Visit Start Time 10:25 Visit Stop Time 10:43 Total Visit Minutes 18 Number of DIRECTOR VOLUNTEER SERVICES Visits 1 Physical Therapy Visit Comments Patient Comments spouse in room with pt M4 PT-IP Mobility and Gait Start: 09/24/19 13:46 Freq: NEEDED Status: Active Protocol: Document 09/26/19 10:25 [facility] (Rec: 09/26/19 11:34 [facility] [email or web address]) PT-Transfer Assessment Comments Mobility Comments Pt was lying in bed upon arrival from therapy and stated he did not want to get up or transfer to chair. Pt agreed to lower and upper extremity exercises. Pt required initiation of all movements before he was able to perform active assisted movement. Pt demonstrated better ability to move UE than LE today and required more assist RUE>LUE. Performed active assisted ROM for BUE wrist, elbow, and shoulder. Pt required max assist and cues for ankle pumps and quad sets and Max A for hip and knee ROM . Pt left in bed w/ all needs in reach. Gait Assessment Comments Gait Comments Not assessed at this time. M5 PT-IP Objective Assessments Start: 09/24/19 13:46 Freq: NEEDED Status: Active Protocol: Document 09/24/19 11:42 [facility] (Rec: 09/24/19 14:05 AB [id number]) Orientation Orientation/Cognition Level of Alertness Confusional State Safety Awareness Decreased Safety Awareness Memory Description Short Term Impaired,Retirement Impaired Gross Range of Motion Lower Extremity ROM Assessment Within Functional Limits Strength Lower Extremity Strength Assessment Within Functional Limits Comments Strength Comments requires cues and assist with initiation to move BLE Muscle Tone Muscle Tone WNL No Muscle Tone Location Bilateral Lower Extremity Type of Tone Hypertonicity,Rigidity Severity of Tone Moderate Comments Muscle Tone Comments also increase trunk rigidity during mobility with (+) freezing episodes M6 PT-IP Treatment Start: 09/24/19 13:46 Freq: NEEDED Status: Active Protocol: Document 09/26/19 10:25 [facility] (Rec: 09/26/19 11:34 [facility] [email or web address]) Physical Therapy Treatment Exercises Exercises Ankle Pumps,Quad Sets Other Treatments Other Treatment Performed AAROM BUE shoulder, elbow wrist, and BLE hips and knees. M7 PT-IP Assessment and Plan Start: 09/24/19 13:46 Freq: NEEDED Status: Active Protocol: Document 09/26/19 10:25 [facility] (Rec: 09/26/19 11:34 [facility] [email or web address]) PT Summary Assessment and Plan Potential Rehabilitation Potential Fair Summary Impairments Pain,ROM,Strength,Balance, Coordination,Sensation,Tone, Cognition,Bed Mobility, Transfers,Gait,Activity Tolerance Progress Towards Goals Slow Progress due to Medical Issues Assessment Summary Pt did not want to complete transfer to chair today, but agreed to exercises in bed. Pt required Max A for ankle pumps and quad sets. He was able to provided some assistance when performing BUE ROM L ~70%, R~30%, but could only provide <5% assist w/ BLE hip and knee ROM. Pt will require SNF to improve strength and mobility. Goals Bed Mobility Goal Moderate Assistance Transfer Goal Moderate Assistance,Front Wheeled Walker Gait Goal Moderate Assistance,Front Wheel Walker Gait Distance 25 Days to Meet Goals 10 Frequency of Treatment Frequency Of Treatment Once a Day Treatment Plan Physical Therapy Treatment Plan Bed Mobility Training,Transfer Training,Gait Training, Therapeutic Exercise,Balance Retraining,Discharge Planning, Neuromuscular Re-ed, Coordination Retraining,Manual Therapy Other Recommendations and Next Treatment transfers, ambulation, Focus caregiver training Recommendations To Nursing Amount of Assist Needed Mechanical Lift Discharge Recommendations PT Discharge Recommendations Home with 12/11 Assist,Home Health,SNF Rehab Transportation Needs at Discharge Wheelchair/Cabulance,Stretcher /Ambulance
--- NOTE | 2019-09-26 11:09 | CM.DPC ---
DCP Continued: EMR Reviewed: Cm/RN called Orin at [facility] and September at [facility] and left both a message to determine which location would accept the patient. Orin called back and stated they can accept the patient and could admit him around 1pm. During AM rounds CM spoke with Dr. Sánchez and he stated he will put in D/C orders. [facility] patients stated understanding and agreed with D/C plan. Patient not able to transport by wheel chair and needs BLS transport. CM Called [facility] at [phone] and scheduled [facility] Transport to [facility] at 2pm. CM Called Orin and let her know time of transport and Faxed copy of PASRR, COVID Negative results and POA paperwork. CM Placed original PASRR into folder to transport with patient to [facility]. CM/RN gave nurse the nurse report # [phone]. Placed copy of PASRR to be scanned in folder on HAT MENDER Neeta's desk. Vilma Gage RN
--- NOTE | 2019-09-26 11:18 | SLP.IPNOTE ---
At 11:15, [employer] entered the room to find pt awake with his spouse. Pt appears to be discharging today to a SNF. [employer] reminded pt and his spouse to take safe swallow precautions sheet with them to give to the SNF. Pt's spouse did not have any questions at this time for the [employer].
[2019-09-26 12:33] VITALS: BP 149/76; PULSE 71; RESP 18; TEMP 36.6; O2SAT 96
--- NOTE | 2019-09-26 12:36 | PC.NURSE ---
Addendum entered by Yadira Rouse R.N. 09/26/19 14:36: Report given to amb crew. Pt transfered to facility in there care. Original Note: Transfer: Report called to [place], admitting nurse at facility. Reviewed hospital course, pt is total care, needs assist with feeding, does have assistive devices at home as well as a lift and a hospital bed, however at this time he is unable to help as much as he could before and she is unable to care for him by self for now. Reviewed skin, vitals, and other information. Pt and spouse have been approach about hospice. Right now they are not sure if they want to do that. Pt is globally disoriented but does recognize and they freq hold hands and tell each other I love you. Questions answered. Plan to d/c at 1400 via [facility] transport.
== END 2019-09-26 14:10 | DRG 66 ==
LOC: ED 20:01 → AC 09-24 10:12
PROVIDERS: Admitting Provider Family Medicine; Emergency Provider Nurse Practitioner; Family Provider Internal Medicine; PCP Internal Medicine; Referring Provider Nurse Practitioner; Visit Provider Family Medicine
DX: I61.5 Nontraumatic intracerebral hemorrhage, intraventricular (principal); G20 Parkinson's disease; F02.80 Dementia in other diseases classified elsewhere, unspecified severity, without behavioral disturbance, psychotic disturbance, mood disturbance, and anxiety; I10 Essential (primary) hypertension; N40.0 Benign prostatic hyperplasia without lower urinary tract symptoms; R29.6 Repeated falls; E87.6 Hypokalemia; E11.9 Type 2 diabetes mellitus without complications; E78.5 Hyperlipidemia, unspecified; Z11.59 Encounter for screening for other viral diseases; Z79.84 Long term (current) use of oral hypoglycemic drugs
CPT/HCPCS: 36415; 70450; 71045; 80048; 80053; 81001; 82550; 83036; 83605; 84484; 85025; 85610; 85730; 87040; 87635; 92526; 92610; 93005; 96360; 96361; 97110; 97162; 97166; 97530; 97535; 99284; A9270